=== PATIENT | female | born 1995 | race Caucasian/White ===

== ENCOUNTER 2019-07-05 03:25 | Emergency (ER) | payer OTHER, SELFPAY ==
[2019-07-05 03:35] VITALS: BP 172/114; PULSE 95; RESP 16; TEMP 36.5; O2SAT 99; BMI 46.8
--- NOTE | 2019-07-05 03:54 | CTR_ITS ---
PROCEDURE INFORMATION: Exam: CT Angiography Chest With Contrast Exam date and time: 07/05/2019 4:37 AM Age: 24 years old Clinical indication: Abdominal pain; Localized; Left upper quadrant (luq); Left-sided chest pain; Additional info: Pleuritic chest pain TECHNIQUE: Imaging protocol: Computed tomographic angiography of the chest with intravenous contrast. 3D rendering: MIP and/or 3D reconstructed images were created by the technologist. Radiation optimization: All CT scans at this facility use at least one of these dose optimization techniques: automated exposure control; mA and/or kV adjustment per patient size (includes targeted exams where dose is matched to clinical indication); or iterative reconstruction. Contrast material: OMNI 350; Contrast volume: 95 ml; Contrast route: IV; COMPARISON: CR XR chest 1V portable [id number] 07/05/2019 4:12 AM RADIATION DOSE METRICS: Total DLP: 1864.81 mGy-cm FINDINGS: Pulmonary arteries: Density in the main pulmonary artery only 125 HU. No suggestion of a large central pulmonary embolus. Aorta: No aortic aneurysm or dissection. Lungs: Minimal dependent atelectasis in both lungs. No consolidation. Pleural space: Unremarkable. No pneumothorax. No pleural effusion. Heart: Unremarkable. No cardiomegaly. No pericardial effusion. Lymph nodes: No enlarged lymph nodes. Bones/joints: Old minimal compression fractures. Degeneration of several discs. Only 11 ribs bilaterally. Soft tissues: No acute finding. IMPRESSION: 1. No suggestion of a large pulmonary embolus. 2. Only 11 ribs bilaterally. Other findings detailed above. PROCEDURE INFORMATION: Exam: CT Abdomen And Pelvis With Contrast Exam date and time: 07/05/2019 4:37 AM Age: 24 years old Clinical indication: Abdominal pain; Localized; Left upper quadrant (luq); Left-sided chest pain; Additional info: Pleuritic chest pain TECHNIQUE: Imaging protocol: Computed tomography of the abdomen and pelvis with intravenous contrast. Radiation optimization: All CT scans at this facility use at least one of these dose optimization techniques: automated exposure control; mA and/or kV adjustment per patient size (includes targeted exams where dose is matched to clinical indication); or iterative reconstruction. Contrast material: OMNI 350; Contrast volume: 95 ml; Contrast route: IV; COMPARISON: CR XR chest 1V portable [id number] 07/05/2019 4:12 AM RADIATION DOSE METRICS: Total DLP: 1864.81 mGy-cm FINDINGS: Liver: Unremarkable. No mass. Gallbladder and bile ducts: No calcified stones. No ductal dilation. Pancreas: Unremarkable. No ductal dilation. Spleen: No splenomegaly. Adrenals: No mass. Kidneys and ureters: Unremarkable. No hydronephrosis. Stomach and bowel: Unremarkable. No obstruction. No apparent mucosal thickening. Appendix: Normal appendix. Intraperitoneal space: No free air. Vasculature: Unremarkable. No abdominal aortic aneurysm. Lymph nodes: No enlarged lymph nodes. Bladder: Unremarkable as visualized. Reproductive: Approximately 18 mm water density mass in the right ovary consistent with a follicular cyst. Bones/joints: Unremarkable. No acute fracture. Soft tissues: Unremarkable. CT/CT angio chest w abd pel w con IMPRESSION: No acute findings. Radiation Dose CTDIVOL = (mGy): DLP = 1864.81~1864.81 (mGy-cm)
--- NOTE | 2019-07-05 03:55 | XR_ITS ---
WS: [id number] CHEST XRAY TECHNIQUE: Portable chest. CLINICAL INFORMATION: Chest pain COMPARISON: None. FINDINGS: Heart: Normal cardiac silhouette. Lungs: Lungs are clear. No consolidation or pleural effusion. Bones: Normal visualized bony structures. XR/XR chest 1V portable [id number] IMPRESSION: No acute chest findings
--- NOTE | 2019-07-05 03:57 | ECG_ITS ---
Measurements Intervals [place] Rate: 80 P: 39 AR: 135 QRS: 24 QRSD: 98 T: 25 QT: 366 QTc: 423 SINUS RHYTHM No previous ECG available for comparison Electronically Signed On 07-05-2019 20:49:11 CDT by Oscar Brewer M.D. [email or web address]
[2019-07-05 04:08] VITALS: RESP 20
[2019-07-05] MEDS: morphine 4 mg/mL SDV 1 mL IVP (04:08)
[2019-07-05] MEDS: ondansetron 2 mg/ML SDV 2 mL 4 MG IVP (04:08)
[2019-07-05 04:25] LABS: Basophils % 0.3 %; Eosinophils # 0.1 10^3/uL (0.0-0.8); Eosinophils % 0.9 %; Hematocrit 43.9 % (37.0-47.0); Hemoglobin 14.3 g/dL (11.5-15.3); Lymphocytes # 2.8 10^3/uL (0.8-4.8); Lymphocytes % 30.7 %; Mean Corpuscular HGB Conc 32.6 g/dL (30.0-36.0); Mean Platelet Volume 9.6 fL (7.4-10.4); Monocytes # 0.9 10^3/uL (0.2-0.9); Monocytes % 9.6 %; Neutrophils # 5.4 10^3/uL (1.8-7.7); Neutrophils % 58.1 %; Nucleated Red Blood Cells % 0 %; Platelet Count 348 10^3/cmm (130-400); Red Blood Count 4.93 10^6/uL (4.1-5.3); Red Cell Distribution Width 12.1 % (12.1-15.1); White Blood Count 9.2 10^3/uL (4.0-10.0)
[2019-07-05 04:30] LABS: HCG, Serum Qual Negative (Negative)
[2019-07-05] MEDS: iohexol 350 mg/mL 100 mL Btl IV (04:38)
[2019-07-05 04:39] LABS: Alanine Aminotransferase 23 U/L (0-33); Albumin Level 4.3 g/dL (3.5-5.2); Alkaline Phosphatase 44 IU/L (35-105); Anion Gap 16.2 (5-19); Aspartate Amino Transferase 21 U/L (0-32); Blood Urea Nitrogen 13 mg/dL (6-20); Calcium 10.3 mg/dL (8.5-10.5); Carbon Dioxide 25 mmol/L (22-29); Chloride 103 mmol/L (98-107); Globulin 3.4 g/dL (1.3-4.6); Glomerular Filtration Rate 149.1 mL/min (90-130); Glucose 136 mg/dL (65-115); Lipase 20 U/L (13-60); Osmolality Calculated 288 mOsm/kg (285-295); Potassium 4.2 mmol/L (3.5-5.1); Sodium 140 mmol/L (136-145); Total Bilirubin 0.2 mg/dL (0.15-1.2); Total Protein 7.7 g/dL (6.6-8.7)
[2019-07-05 04:41] LABS: Troponin(5th) Baseline 6 ng/mL (0-10)
[2019-07-05 04:47] LABS: D Dimer 0.44 ug/mIFEU (0-0.59)
--- NOTE | 2019-07-05 05:14 | ED_ITS ---
Documented by User: Claritza Anderson 07/05/19 06:14 HPI - Abdominal Pain General: Chief Complaint: Abdominal Pain Stated Complaint: L SIDE PAIN SHARP Time Seen by Provider: 07/05/19 03:38 History of Present Illness: HPI narrative: Leann is a nice 24-year-old female who comes in complaining of left lower chest and left upper quadrant pain. She states her symptoms began yesterday and are intermittent but have become worse. She denies injury to the area, cough, fever, urinary symptoms only the intermittent chest pain. She states that it started off intermittent but now states is been constant for 3 days never relenting. She is unaware of anything that makes her symptoms better or worse. Associated Symptoms: Denies chills, coffee ground emesis, constipation, GI cramping, diarrhea, dysuria, fever(s), heartburn, hematochezia, hematuria, hematemesis, melena, nausea, syncope and vomiting Review of Systems Const: Denies: fever(s), chills, body aches, fatigue, malaise, night sweats or diaphoresis Eyes: Denies: change in vision, blurry vision or blind spots ENMT: Denies: throat pain, odynophagia, hoarseness, ear or mastoid pain, ear discharge, change in hearing or nasal discharge Card: Reports: chest pain; Denies: palpitations, irregular heart rhythm, lightheadedness, syncope, pre- syncope, dyspnea on exertion or orthopnea Resp: Denies: dyspnea, productive cough, non-productive cough, wheezing, hemoptysis or chest congestion GI: Reports: abdominal pain; Denies: nausea, vomiting, hematemesis, coffee ground emesis, heartburn, diar stefanie, constipation, GI cramping, hematochezia or melena : Denies: flank pain, dysuria, urinary frequency, urinary urgency, oliguria, urinary incontinence or hematuria Musc: Denies: neck pain, back pain, extremity pain, extremity swelling, joint pain, joint swelling, joint redness, joint warmth or joint stiffness Skin/Breast: Denies: rash, pruritus, erythema, skin tenderness or jaundice Neuro: Denies: headache(s), numbness in extremities, weakness in extremities, sensory changes, lack of coordination, difficulty walking, dizziness, vertigo, confusion or Slurred speech present Endo: Denies: polyuria, polydipsia, tired all the time, cold intolerance, excessive sweating, flushing, hot flashes or heat intolerance Robel/Lymph: Denies: easy bruising, easy bleeding, petechiae, purpura or enlarged lymph nodes All/Imm: Denies: urticaria, throat swelling, tongue swelling, facial swelling or acute wheezing PFSH ED PFSH: Surgical History History of dental surgery History of tympanostomy tube placement S/P tonsillectomy Family History (Updated 07/05/19 @ 14:[address]) Other Dementia Diabetes Heart disease Hypertension Social History (Updated 07/05/19 @ 14:42 by JESSICA Wellington) Smoking and tobacco status: never smoked Second hand smoke exposure: No Smoking risk assessment/counseling performed?: No Alcohol intake: never Desire information about alcohol rehabilitation?: No Counseling given: No Desire information about substance/drug rehabilitation?: No Counseling given: No Adopted: No Caregiver/support person: No Lives independently: Yes Household members: spouse Housing: House Marital status: Number of children: 0 Highest education level completed: High School Graduate service: No Current occupational status: employed 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[employer] History of 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 travel: No Current gender identity: Female Physical Exam Const: COMMON NORMALS: no acute distress, patient oriented x3, no limitations, healthy appearing and well nourished EXAM LIMITATIONS: no altered mental status GENERAL APPEARANCE: cooperative, well kempt and well developed HENMT: COMMON NORMALS: normocephalic, atraumatic, hearing grossly normal bilaterally, external ears normal, EAC's normal, Normal external nose present and moist oral mucous membranes HEAD & SCALP: normal to inspection, normocephalic and atraumatic FACE & SINUS: normal facial exam and face symmetric NOSE: Normal external nose present and Normal nares present EXTERNAL EAR: Yes external ears normal EXTERNAL AUDITORY CANAL: EAC's normal MOUTH: Normal oral and palatal mucosa present, lip normal and tongue normal Eye: COMMON NORMALS: Equal, round and reactive pupils present, EOMs intact bilaterally, conjunctivae normal and no scleral icterus GENERAL EYE: appearance normal, both eyes and all related structures ALIGNMENT: Yes alignment normal PERIORBITAL: periorbital findings normal EYELID: eyelids normal CONJUNCTIVA: Yes conjunctivae normal SCLERA: sclerae normal PUPIL: Yes Equal, round and reactive pupils present Neck/C-Spine: COMMON NORMALS: full ROM, no lymphadenopathy, supple, no meningeal signs and no JVD GENERAL: Yes normal visual inspection and Yes trachea midline CERVICAL SPINE: Yes cervical ROM normal Chest: COMMONS NORMALS: normal inspection of the chest CHEST: Yes tenderness rib (Left anterior lower) Resp: COMMON NORMALS: normal respiratory effort, No retractions, No use of accessory muscles and clear to auscultation bilaterally EFFORT & INSPECTION: Yes able to speak in complete sentences AUSCULTATION: clear to auscultation bilaterally, no crackles, no rales, no rhonchi and no wheezes Cardio: COMMON NORMALS: no JVD, regular rate, regular rhythm, S1 normal heart sound present, S2 normal heart sound present, No gallops present (Cardio), No clicks present (Cardio), No murmurs present (Cardio) and No rub (Cardio) RATE: regular rate RHYTHM: regular rhythm HEART SOUNDS: S1 normal heart sound present, S2 normal heart sound present, no click, no gallops, no murmurs and no rubs GI: COMMON NORMALS: Soft to palpation, non-tender, No hepatosplenomegaly present and no masses PALPATION: Yes Soft to palpation, Yes Tenderness to palpation present (GI) Details: LUQ, No Guarding due to palpation present (GI), No Rigid due to palpation, Yes No hepatosplenomegaly present, No Hernia present, No Palpable mass present and No Pulsatile mass present : COMMON NORMALS: Yes no CVA tenderness BLADDER/KIDNEY EXAM: Yes no CVA tenderness EXTERNAL FEMALE EXAM: No Hernia present Back/Pelvis: COMMON NORMALS: no CVA tenderness, thoracic and lumbar spine normal to inspection, no thoracic nor lumbar tenderness and thoraco-lumbar ROM normal Extremity: COMMON NORMALS: normal to inspection, full ROM, capillary refill normal, no joint enlargement, no clubbing, cyanosis or edema and no calf tenderness Neuro: COMMON NORMALS: patient oriented x3, CN's II-XII intact bilaterally, moves all extremities, no focal motor deficits and no sensory deficits noted MENINGEAL SIGNS: Yes no meningeal signs SPEECH: speech normal Psych: COMMON NORMALS: mental status grossly normal, Normal thought process present, cooperative, normal affect, speech normal and activity/motor behavior normal APPEARANCE: Yes well kempt SPEECH: Yes normal speech THOUGHT PROCESS: Normal thought process present Skin: COMMON NORMALS: no rashes or lesions noted, turgor normal, no jaundice, no petechiae and no mottling GENERAL SKIN EXAM: no rashes or lesions noted and turgor normal Course Vital Signs: Vital signs: Vital Signs Temperature 97.7 F 07/05/19 03:35 Pulse Rate 82 07/05/19 06:26 Respiratory Rate 16 07/05/19 06:26 Blood Pressure 130/83 07/05/19 06:26 Pulse Oximetry 98 07/05/19 06:26 MDM - Abdominal Pain MDM Narrative: Medical decision making narrative: Patient has had constant chest pain for the past 3 days. Her EKG and troponin are normal. A second troponin is pending and I expect it to be normal and as long as it is she will be discharged. Patient has reproducible pain and pain with movement. I believe she has a pleurisy or costochondritis. I will place her on pain medication and anti-inflammatories. She agrees to return should her symptoms change or worsen. At this time I see no sign of pericarditis, myocarditis, pneumothorax, pneu monia, pulmonary embolism or other life-threatening cause for her pain. Patient does understand that if it is something more serious her pain what does not get better or gets worse she will need to return to the ER for recheck. Lab Data: Attestation: I reviewed the patient's lab results. Labs: Lab Results 07/05/19 07/05/19 07/05/19 Range/Units 03:50 03:50 03:50 WBC 9.2 (4.0-10.0) 10^3/ uL RBC 4.93 (4.1-5.3) 10^6/u L Hgb 14.3 (11.5-15.3) g/dL Hct 43.9 (37.0-47.0) % MCV 89.0 (81-99) fL MCH 29.0 (28.0-34.0) pg MCHC 32.6 (30.0-36.0) g/dL RDW 12.1 (12.1-15.1) % Plt Count 348 (130-400) 10^3/c mm MPV 9.6 (7.4-10.4) fL Neut % (Auto) 58.1 % Lymph % (Auto) 30.7 % [place] % (Auto) 9.6 % Eos % (Auto) 0.9 % Baso % (Auto) 0.3 % Neut # (Auto) 5.4 (1.8-7.7) 10^3/u L Lymph # (Auto) 2.8 (0.8-4.8) 10^3/u L [place] # (Auto) 0.9 (0.2-0.9) 10^3/u L Eos # (Auto) 0.1 (0.0-0.8) 10^3/u L Baso # (Auto) 0.0 (0.0-0.1) 10^3/u L Nucleated RBC % (a uto) 0 % Nucleated RBCs # 0.0 /100WBC D-Dimer (0-0.59) ug/mIFE U Sodium 140 (136-145) mmol/L Potassium 4.2 (3.5-5.1) mmol/L Chloride 103 (98-107) mmol/L Carbon Dioxide 25 (22-29) mmol/L Anion Gap 16.2 (5-19) BUN 13 (6-20) mg/dL Creatinine 0.5 (0.5-0.9) mg/dL GFR Calculation 149.1 H (90-130) mL/min Glucose 136 H (65-115) mg/dL Calculated Osmolal ity 288 (285-295) mOsm/k g Calcium 10.3 (8.5-10.5) mg/dL Total Bilirubin 0.2 (0.15-1.2) mg/dL AST 21 (0-32) U/L ALT 23 (0-33) U/L Alkaline Phosphata se 44 (35-105) IU/L Troponin T Baselin e (0-10) ng/mL Troponin T 120 Min [place] (0-10) ng/mL Delta Troponin T (0-10) ABS# Total Protein 7.7 (6.6-8.7) g/dL Albumin 4.3 (3.5-5.2) g/dL Globulin 3.4 (1.3-4.6) g/dL Lipase 20 (13-60) U/L HCG, Qual Negative (Negative) Urine Color (Yellow) Urine Appearance (CLEAR) Urine pH (5-7) Ur Specific Gravit y (1.005-1.030) Urine Protein (Negative) Urine Glucose (UA) (Normal) Urine Ketones (Negative) Urine Blood (Negative) Urine Nitrate (Negative) Urine Bilirubin (NEGATIVE) Urine Urobilinogen (Negative) mg/dL Ur Leukocyte Brandy ase (Negative) Urine RBC (0-2) /hpf Urine WBC (0-5) /hpf Ur Squamous Epith Cells (0-5) Urine Bacteria (NONE) 07/05/19 07/05/19 07/05/19 Range/Units 03:50 03:50 05:07 WBC (4.0-10.0) 10^3/ uL RBC (4.1-5.3) 10^6/u L Hgb (11.5-15.3) g/dL Hct (37.0-47.0) % MCV (81-99) fL MCH (28.0-34.0) pg MCHC (30.0-36.0) g/dL RDW (12.1-15.1) % Plt Count (130-400) 10^3/c mm MPV (7.4-10.4) fL Neut % (Auto) % Lymph % (Auto) % [place] % (Auto) % Eos % (Auto) % Baso % (Auto) % Neut # (Auto) (1.8-7.7) 10^3/u L Lymph # (Auto) (0.8-4.8) 10^3/u L [place] # (Auto) (0.2-0.9) 10^3/u L Eos # (Auto) (0.0-0.8) 10^3/u L Baso # (Auto) (0.0-0.1) 10^3/u L Nucleated RBC % (a uto) % Nucleated RBCs # /100WBC D-Dimer 0.44 (0-0.59) ug/mIFE U Sodium (136-145) mmol/L Potassium (3.5-5.1) mmol/L Chloride (98-107) mmol/L Carbon Dioxide (22-29) mmol/L Anion Gap (5-19) BUN (6-20) mg/dL Creatinine (0.5-0.9) mg/dL GFR Calculation (90-130) mL/min Glucose (65-115) mg/dL Calculated Osmolal ity (285-295) mOsm/k g Calcium (8.5-10.5) mg/dL Total Bilirubin (0.15-1.2) mg/dL AST (0-32) U/L ALT (0-33) U/L Alkaline Phosphata se (35-105) IU/L Troponin T Baselin e 6 (0-10) ng/mL Troponin T 120 Min [place] (0-10) ng/mL Delta Troponin T (0-10) ABS# Total Protein (6.6-8.7) g/dL Albumin (3.5-5.2) g/dL Globulin (1.3-4.6) g/dL Lipase (13-60) U/L HCG, Qual (Negative) Urine Color Yellow (Yellow) Urine Appearance Clear (CLEAR) Urine pH 7 (5-7) Ur Specific Gravit y 1.005 (1.005-1.030) Urine Protein Neg (Negative) Urine Glucose (UA) Norm (Normal) Urine Ketones Negative (Negative) Urine Blood Neg (Negative) Urine Nitrate Negative (Negative) Urine Bilirubin Neg (NEGATIVE) Urine Urobilinogen Norm (Negative) mg/dL Ur Leukocyte Brandy ase Negative (Negative) Urine RBC None (0-2) /hpf Urine WBC None (0-5) /hpf Ur Squamous Epith Cells 0-4 H (0-5) Urine Bacteria Trace (NONE) 07/05/19 Range/Units 05:30 WBC (4.0-10.0) 10^3/ uL RBC (4.1-5.3) 10^6/u L Hgb (11.5-15.3) g/dL Hct (37.0-47.0) % MCV (81-99) fL MCH (28.0-34.0) pg MCHC (30.0-36.0) g/dL RDW (12.1-15.1) % Plt Count (130-400) 10^3/c mm MPV (7.4-10.4) fL Neut % (Auto) % Lymph % (Auto) % [place] % (Auto) % Eos % (Auto) % Baso % (Auto) % Neut # (Auto) (1.8-7.7) 10^3/u L Lymph # (Auto) (0.8-4.8) 10^3/u L [place] # (Auto) (0.2-0.9) 10^3/u L Eos # (Auto) (0.0-0.8) 10^3/u L Baso # (Auto) (0.0-0.1) 10^3/u L Nucleated RBC % (a uto) % Nucleated RBCs # /100WBC D-Dimer (0-0.59) ug/mIFE U Sodium (136-145) mmol/L Potassium (3.5-5.1) mmol/L Chloride (98-107) mmol/L Carbon Dioxide (22-29) mmol/L Anion Gap (5-19) BUN (6-20) mg/dL Creatinine (0.5-0.9) mg/dL GFR Calculation (90-130) mL/min Glucose (65-115) mg/dL Calculated Osmolal ity (285-295) mOsm/k g Calcium (8.5-10.5) mg/dL Total Bilirubin (0.15-1.2) mg/dL AST (0-32) U/L ALT (0-33) U/L Alkaline Phosphata se (35-105) IU/L Troponin T Baselin e (0-10) ng/mL Troponin T 120 Min [place] 6.00 (0-10) ng/mL Delta Troponin T 0 (0-10) ABS# Total Protein (6.6-8.7) g/dL Albumin (3.5-5.2) g/dL Globulin (1.3-4.6) g/dL Lipase (13-60) U/L HCG, Qual (Negative) Urine Color (Yellow) Urine Appearance (CLEAR) Urine pH (5-7) Ur Specific Gravit y (1.005-1.030) Urine Protein (Negative) Urine Glucose (UA) (Normal) Urine Ketones (Negative) Urine Blood (Negative) Urine Nitrate (Negative) Urine Bilirubin (NEGATIVE) Urine Urobilinogen (Negative) mg/dL Ur Leukocyte Brandy ase (Negative) Urine RBC (0-2) /hpf Urine WBC (0-5) /hpf Ur Squamous Epith Cells (0-5) Urine Bacteria (NONE) Imaging Data ^: CXR: My impression: No acute cardiopulmonary findings CT Chest/Abdomen/Pelvis: Radiologist's impression: [address] [place] [address] CT Scan Report Signed Patient: Leann Mckeon Unit #: [id number] : 1995 Acct#:[id number] Age/Sex: 24 / F ADM Date: 07/05/19 Loc: ER Room/Bed: Attending Dr: Ordering Provider/Ordering MD: Claritza Anderson DO Date of Service: 07/05/19 Procedure(s): CT angio chest w abd pel w con Accession Number(s): [id number] Report Number: [id number] PROCEDURE INFORMATION: Exam: CT Angiography Chest With Contrast Exam date and time: 07/05/2019 4:37 AM Age: 24 years old Clinical indication: Abdominal pain; Localized; Left upper quadrant (luq); Left-sided chest pain; Additional info: Pleuritic chest pain TECHNIQUE: Imaging protocol: Computed tomographic angiography of the chest with intravenous contrast. 3D rendering: MIP and/or 3D reconstructed images were created by the technologist. Radiation optimization: All CT scans at this facility use at least one of these dose optimization techniques: automated exposure control; mA and/or kV adjustment per patient size (includes targeted exams where dose is matched to clinical indication); or iterative reconstruction. Contrast material: OMNI 350; Contrast volume: 95 ml; Contrast route: IV; COMPARISON: CR XR chest 1V portable [id number] 07/05/2019 4:12 AM RADIATION DOSE METRICS: Total DLP: 1864.81 mGy-cm FINDINGS: Pulmonary arteries: Density in the main pulmonary artery only 125 HU. No suggestion of a large central pulmonary embolus. Aorta: No aortic aneurysm or dissection. Lungs: Minimal dependent atelectasis in both lungs. No consolidation. Pleural space: Unremarkable. No pneumothorax. No pleural effusion. Heart: Unremarkable. No cardiomegaly. No pericardial effusion. Lymph nodes: No enlarged lymph nodes. Bones/joints: Old minimal compression fractures. Degeneration of several discs. Only 11 ribs bilaterally. Soft tissues: No acute finding. IMPRESSION: 1. No suggestion of a large pulmonary embolus. 2. Only 11 ribs bilaterally. Other findings detailed above. PROCEDURE INFORMATION: Exam: CT Abdomen And Pelvis With Contrast Exam date and time: 07/05/2019 4:37 AM Age: 24 years old Clinical indication: Abdominal pain; Localized; Left upper quadrant (luq); Left-sided chest pain; Additional info: Pleuritic chest pain TECHNIQUE: Imaging protocol: Computed tomography of the abdomen and pelvis with intravenous contrast. Radiation optimization: All CT scans at this facility use at least one of these dose optimization techniques: automated exposure control; mA and/or kV adjustment per patient size (includes targeted exams where dose is matched to clinical indication); or iterative reconstruction. Contrast material: OMNI 350; Contrast volume: 95 ml; Contrast route: IV; COMPARISON: CR XR chest 1V portable [id number] 07/05/2019 4:12 AM RADIATION DOSE METRICS: Total DLP: 1864.81 mGy-cm FINDINGS: Liver: Unremarkable. No mass. Gallbladder and bile ducts: No calcified stones. No ductal dilation. Pancreas: Unremarkable. No ductal dilation. Spleen: No splenomegaly. Adrenals: No mass. Kidneys and ureters: Unremarkable. No hydronephrosis. Stomach and bowel: Unremarkable. No obstruction. No apparent mucosal thickening. Appendix: Normal appendix. Intraperitoneal space: No free air. Vasculature: Unremarkable. No abdominal aortic aneurysm. Lymph nodes: No enlarged lymph nodes. Bladder: Unremarkable as visualized. Reproductive: Approximately 18 mm water density mass in the right ovary consistent with a follicular cyst. Bones/joints: Unremarkable. No acute fracture. Soft tissues: Unremarkable. CT/CT angio chest w abd pel w con IMPRESSION: No acute findings. Radiation Dose CTDIVOL = (mGy): DLP = 1864.81 1864.81 (mGy-cm) Dictated By: Lynn Clinton MD Signed By: Lynn Clinton MD Signed Date/Time: 07/05/19601 DD/ 0 EKG Data ^: EKG 1: Attestation: I personally reviewed and interpreted this EKG as follows: EKG interpretation date: 07/05/19 EKG interpretation time: 04:10 Interpretation: Normal sinus rhythm at 80 beats a minute, no acute ST-T wave changes. EKG 2: Attestation: I personally reviewed and interpreted this EKG as follows: EKG interpretation date: 07/05/19 EKG interpretation time: 05:51 Interpretation: Normal sinus rhythm at 86 beats a minute, short IA interval, right axis deviation, nonspecific ST and T waves. Suspect lead misplacement Discharge Plan Discharge Patient Disposition: Home, Self-Care Clinical Impression: Acute costochondritis, Pleurisy Condition: Stable Prescriptions: New ibuprofen 800 mg tablet 800 mg PO TID PRN (Reason: pain) Qty: 30 RF: 0 Graham 5-325 mg tablet 1 tab PO Q6H PRN (Reason: pain) 5 Days Qty: 10 RF: 0 No Action zonisamide 50 mg capsule 50 mg PO Q12H Qty: 60 RF: 0 duloxetine [Cymbalta] 30 mg capsule,delayed release(DR/EC) 30 mg PO BID Qty: 60 RF: 0 Discharge Orders: Discharge Order (Routine); Ordered 07/05/19 Ordered By: Claritza Anderson Referrals: Trent Mao, [facility] [Primary Care Provider] - 1-3 days Discharge Diet: Advance as tolerated Discharge Activity: Increase activity as tolerated Patient Instructions: Pleurisy (ED), Costochondritis (ED) Activity Restrictions/Additional Instructions: Please return to the ER immediately for any of the signs or symptoms listed on your discharge instruction sheets, worsening/changing of your symptoms, you are not getting better as quickly as expected, or for ANY other cause or concerns. Stand Alone Forms: Work/School Release Discharge Date/Time: 07/05/19 06:32 Coding Level of Care Code ED General Internist And Physician Leader for Chg Fwd Exam Comprehensive Documented by User: Farhad Hernandez DO 07/06/19 15:09 HPI - Abdominal Pain General: Chief Complaint: Abdominal Pain Stated Complaint: L SIDE PAIN SHARP Time Seen by Provider: 07/05/19 03:38 PFSH ED PFSH: Surgical History History of dental surgery History of tympanostomy tube placement S/P tonsillectomy Family History (Updated 07/05/19 @ 14:41 by JESSICA Wellington) Other Dementia Diabetes Heart disease Hypertension Social History (Updated 07/05/19 @ 14:42 by JESSICA Wellington) Smoking and tobacco status: never smoked Second hand smoke exposure: No Smoking risk assessment/counseling performed?: No Alcohol intake: never Desire information about alcohol rehabilitation?: No Counseling given: No Desire information about substance/drug rehabilitation?: No Counseling given: No Adopted: No Caregiver/support person: No Lives independently: Yes Household members: spouse Housing: House Marital status: Number of children: 0 Highest education level completed: High School Graduate service: No Current occupational status: employed 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 Zuniga's instructions Lab Data: Labs: Lab Results 07/05/19 07/05/19 07/05/19 Range/Units 03:50 03:50 03:50 WBC 9.2 (4.0-10.0) 10^3/ uL RBC 4.93 (4.1-5.3) 10^6/u L Hgb 14.3 (11.5-15.3) g/dL Hct 43.9 (37.0-47.0) % MCV 89.0 (81-99) fL MCH 29.0 (28.0-34.0) pg MCHC 32.6 (30.0-36.0) g/dL RDW 12.1 (12.1-15.1) % Plt Count 348 (130-400) 10^3/c mm MPV 9.6 (7.4-10.4) fL Neut % (Auto) 58.1 % Lymph % (Auto) 30.7 % [place] % (Auto) 9.6 % Eos % (Auto) 0.9 % Baso % (Auto) 0.3 % Neut # (Auto) 5.4 (1.8-7.7) 10^3/u L Lymph # (Auto) 2.8 (0.8-4.8) 10^3/u L [place] # (Auto) 0.9 (0.2-0.9) 10^3/u L Eos # (Auto) 0.1 (0.0-0.8) 10^3/u L Baso # (Auto) 0.0 (0.0-0.1) 10^3/u L Nucleated RBC % (a uto) 0 % Nucleated RBCs # 0.0 /100WBC D-Dimer (0-0.59) ug/mIFE U Sodium 140 (136-145) mmol/L Potassium 4.2 (3.5-5.1) mmol/L Chloride 103 (98-107) mmol/L Carbon Dioxide 25 (22-29) mmol/L Anion Gap 16.2 (5-19) BUN 13 (6-20) mg/dL Creatinine 0.5 (0.5-0.9) mg/dL GFR Calculation 149.1 H (90-130) mL/min Glucose 136 H (65-115) mg/dL Calculated Osmolal ity 288 (285-295) mOsm/k g Calcium 10.3 (8.5-10.5) mg/dL Total Bilirubin 0.2 (0.15-1.2) mg/dL AST 21 (0-32) U/L ALT 23 (0-33) U/L Alkaline Phosphata se 44 (35-105) IU/L Troponin T Baselin e (0-10) ng/mL Troponin T 120 Min [place] (0-10) ng/mL Delta Troponin T (0-10) ABS# Total Protein 7.7 (6.6-8.7) g/dL Albumin 4.3 (3.5-5.2) g/dL Globulin 3.4 (1.3-4.6) g/dL Lipase 20 (13-60) U/L HCG, Qual Negative (Negative) Urine Color (Yellow) Urine Appearance (CLEAR) Urine pH (5-7) Ur Specific Gravit y (1.005-1.030) Urine Protein (Negative) Urine Glucose (UA) (Normal) Urine Ketones (Negative) Urine Blood (Negative) Urine Nitrate (Negative) Urine Bilirubin (NEGATIVE) Urine Urobilinogen (Negative) mg/dL Ur Leukocyte Brandy ase (Negative) Urine RBC (0-2) /hpf Urine WBC (0-5) /hpf Ur Squamous Epith Cells (0-5) Urine Bacteria (NONE) 07/05/19 07/05/19 07/05/19 Range/Units 03:50 03:50 05:07 WBC (4.0-10.0) 10^3/ uL RBC (4.1-5.3) 10^6/u L Hgb (11.5-15.3) g/dL Hct (37.0-47.0) % MCV (81-99) fL MCH (28.0-34.0) pg MCHC (30.0-36.0) g/dL RDW (12.1-15.1) % Plt Count (130-400) 10^3/c mm MPV (7.4-10.4) fL Neut % (Auto) % Lymph % (Auto) % [place] % (Auto) % Eos % (Auto) % Baso % (Auto) % Neut # (Auto) (1.8-7.7) 10^3/u L Lymph # (Auto) (0.8-4.8) 10^3/u L [place] # (Auto) (0.2-0.9) 10^3/u L Eos # (Auto) (0.0-0.8) 10^3/u L Baso # (Auto) (0.0-0.1) 10^3/u L Nucleated RBC % (a uto) % Nucleated RBCs # /100WBC D-Dimer 0.44 (0-0.59) ug/mIFE U Sodium (136-145) mmol/L Potassium (3.5-5.1) mmol/L Chloride (98-107) mmol/L Carbon Dioxide (22-29) mmol/L Anion Gap (5-19) BUN (6-20) mg/dL Creatinine (0.5-0.9) mg/dL GFR Calculation (90-130) mL/min Glucose (65-115) mg/dL Calculated Osmolal ity (285-295) mOsm/k g Calcium (8.5-10.5) mg/dL Total Bilirubin (0.15-1.2) mg/dL AST (0-32) U/L ALT (0-33) U/L Alkaline Phosphata se (35-105) IU/L Troponin T Baselin e 6 (0-10) ng/mL Troponin T 120 Min [place] (0-10) ng/mL Delta Troponin T (0-10) ABS# Total Protein (6.6-8.7) g/dL Albumin (3.5-5.2) g/dL Globulin (1.3-4.6) g/dL Lipase (13-60) U/L HCG, Qual (Negative) Urine Color Yellow (Yellow) Urine Appearance Clear (CLEAR) Urine pH 7 (5-7) Ur Specific Gravit y 1.005 (1.005-1.030) Urine Protein Neg (Negative) Urine Glucose (UA) Norm (Normal) Urine Ketones Negative (Negative) Urine Blood Neg (Negative) Urine Nitrate Negative (Negative) Urine Bilirubin Neg (NEGATIVE) Urine Urobilinogen Norm (Negative) mg/dL Ur Leukocyte Brandy ase Negative (Negative) Urine RBC None (0-2) /hpf Urine WBC None (0-5) /hpf Ur Squamous Epith Cells 0-4 H (0-5) Urine Bacteria Trace (NONE) 07/05/19 Range/Units 05:30 WBC (4.0-10.0) 10^3/ uL RBC (4.1-5.3) 10^6/u L Hgb (11.5-15.3) g/dL Hct (37.0-47.0) % MCV (81-99) fL MCH (28.0-34.0) pg MCHC (30.0-36.0) g/dL RDW (12.1-15.1) % Plt Count (130-400) 10^3/c mm MPV (7.4-10.4) fL Neut % (Auto) % Lymph % (Auto) % [place] % (Auto) % Eos % (Auto) % Baso % (Auto) % Neut # (Auto) (1.8-7.7) 10^3/u L Lymph # (Auto) (0.8-4.8) 10^3/u L [place] # (Auto) (0.2-0.9) 10^3/u L Eos # (Auto) (0.0-0.8) 10^3/u L Baso # (Auto) (0.0-0.1) 10^3/u L Nucleated RBC % (a uto) % Nucleated RBCs # /100WBC D-Dimer (0-0.59) ug/mIFE U Sodium (136-145) mmol/L Potassium (3.5-5.1) mmol/L Chloride (98-107) mmol/L Carbon Dioxide (22-29) mmol/L Anion Gap (5-19) BUN (6-20) mg/dL Creatinine (0.5-0.9) mg/dL GFR Calculation (90-130) mL/min Glucose (65-115) mg/dL Calculated Osmolal ity (285-295) mOsm/k g Calcium (8.5-10.5) mg/dL Total Bilirubin (0.15-1.2) mg/dL AST (0-32) U/L ALT (0-33) U/L Alkaline Phosphata se (35-105) IU/L Troponin T Baselin e (0-10) ng/mL Troponin T 120 Min [place] 6.00 (0-10) ng/mL Delta Troponin T 0 (0-10) ABS# Total Protein (6.6-8.7) g/dL Albumin (3.5-5.2) g/dL Globulin (1.3-4.6) g/dL Lipase (13-60) U/L HCG, Qual (Negative) Urine Color (Yellow) Urine Appearance (CLEAR) Urine pH (5-7) Ur Specific Gravit y (1.005-1.030) Urine Protein (Negative) Urine Glucose (UA) (Normal) Urine Ketones (Negative) Urine Blood (Negative) Urine Nitrate (Negative) Urine Bilirubin (NEGATIVE) Urine Urobilinogen (Negative) mg/dL Ur Leukocyte Brandy ase (Negative) Urine RBC (0-2) /hpf Urine WBC (0-5) /hpf Ur Squamous Epith Cells (0-5) Urine Bacteria (NONE) Discharge Plan Discharge Patient Disposition: Home, Self-Care Clinical Impression: Acute costochondritis, Pleurisy Condition: Stable Prescriptions: New ibuprofen 800 mg tablet 800 mg PO TID PRN (Reason: pain) Qty: 30 RF: 0 [place] 5-325 mg tablet 1 tab PO Q6H PRN (Reason: pain) 5 Days Qty: 10 RF: 0 No Action zonisamide 50 mg capsule 50 mg PO Q12H Qty: 60 RF: 0 duloxetine [Cymbalta] 30 mg capsule,delayed release(DR/EC) 30 mg PO BID Qty: 60 RF: 0 Discharge Orders: Discharge Order (Routine); Ordered 07/05/19 Ordered By: Claritza Anderson Referrals: Trent Mao, CLOTH DRIER-C [Primary Care Provider] - 1-3 days Discharge Diet: Advance as tolerated Discharge Activity: Increase activity as tolerated Patient Instructions: Pleurisy (ED), Costochondritis (ED) Activity Restrictions/Additional Instructions: Please return to the ER immediately for any of the signs or symptoms listed on your discharge instruction sheets, worsening/changing of your symptoms, you are not getting better as quickly as expected, or for ANY other cause or concerns. Stand Alone Forms: Work/School Release Discharge Date/Time: 07/05/19 06:32 Coding Level of Care Code ED General Internist And Physician Leader for Chg Fwd Exam Comprehensive
[2019-07-05] MEDS: sodium chloride 0.9% 1,000 ML 999 ML IV (05:56)
[2019-07-05] MEDS: ketorolac 30 mg/mL INJ 10 MG IVP (05:57)
[2019-07-05 06:22] LABS: Troponin 5 2HR Delta 0 ABS# (0-10)
[2019-07-05 06:26] VITALS: BP 130/83; PULSE 82; RESP 16; O2SAT 98
[2019-07-05 06:50] LABS: Add Urine Culture? No; Bacteria Urine TRACE; Bilirubin Urine Neg (NEGATIVE); Blood Urine Neg (Negative); Glucose Urine UA Norm (Normal); Ketones Urine Negative (Negative); Leukocyte Esterase Urine Negative (Negative); Nitrate Urine Negative (Negative); Protein Urine Neg (Negative); Specific Gravity, Urine 1.005 (1.005-1.030); Squamous Epithelial Cell Urine 0-4 (0-5); Urine Appearance Clear (CLEAR); Urine Color Yellow (Yellow); Urobilinogen Urine Norm (Negative); pH Urine 7 (5-7)
== END 2019-07-05 06:32 | disposition home or self-care (01) ==
PROVIDERS: Emergency Provider Emergency Medicine; Family Provider Nurse Practitioner; PCP Nurse Practitioner
DX: M94.0 Chondrocostal junction syndrome [Tietze] (principal); R09.1 Pleurisy
CPT/HCPCS: 12345; 71045; 71275; 74177; 80053; 81001; 83690; 84484; 84703; 85025; 85378; 93005; 96361; 96374; 96375; 99283; 99284; J1885; J2270; J2405; J7030; Q9967

== ENCOUNTER 2019-07-18 13:37 | Outpatient (CLI) | payer OTHER, SELFPAY ==
--- NOTE | 2019-07-18 14:01 | MR_ITS ---
WS: [id number] MRI THORACIC SPINE without contrast. HISTORY: M54.14 Radiculopathy, thoracic region. COMPARISON: None available. TECHNIQUE: Multiplanar sequences are performed in sagittal and axial planes. Slight straightening of the normal thoracic kyphosis. Disc spaces and vertebral body heights are norm al. CSF surrounds the thoracic cord. No signal abnormality. Conus tapers normally and ends at the T12 -L1 level. No disc protrusions or stenosis. T1-2: Normal. T2-3: Normal. T3-4: Normal. T4-5: Normal. T5-6: Normal. T6-7: Normal. T7-8: Normal. T8-9: Normal. T9-10: Normal. T10-11: Normal. T11-12: Normal. MR/MR thoracic spin wo con* [id number] IMPRESSION: Normal thoracic spine MRI.
== END 2019-07-18 13:38 | disposition home or self-care (01) ==
PROVIDERS: Family Provider Nurse Practitioner; PCP Nurse Practitioner; Visit Provider Nurse Practitioner
DX: M54.14 Radiculopathy, thoracic region (principal)
CPT/HCPCS: 72146

== ENCOUNTER → 2019-10-10 16:49 | Outpatient (BNVA) | payer OTHER, SELFPAY | PROVIDERS: Family Provider Nurse Practitioner; PCP Nurse Practitioner; Visit Provider Nurse Practitioner | DX: Z12.4 Encounter for screening for malignant neoplasm of cervix (principal) | CPT/HCPCS: 88175 ==

== ENCOUNTER → 2020-02-22 14:03 | Outpatient (BNVA) | payer OTHER, SELFPAY | PROVIDERS: Family Provider Nurse Practitioner; PCP Nurse Practitioner; Visit Provider Nurse Practitioner Family | DX: Z20.828 Contact with and (suspected) exposure to other viral communicable diseases (principal); J06.9 Acute upper respiratory infection, unspecified | CPT/HCPCS: 87635 ==

== ENCOUNTER → 2020-08-05 11:38 | Outpatient (BNVA) | payer OTHER, SELFPAY | PROVIDERS: Family Provider Nurse Practitioner; PCP Nurse Practitioner; Visit Provider Family Medicine Adult Medicine | DX: S93.401A Sprain of unspecified ligament of right ankle, initial encounter (principal); M25.471 Effusion, right ankle; W19.XXXA Unspecified fall, initial encounter | CPT/HCPCS: 73610 ==

== ENCOUNTER → 2020-09-07 13:36 | Outpatient (BNVA) | payer OTHER, SELFPAY | PROVIDERS: Family Provider Nurse Practitioner; PCP Nurse Practitioner; Visit Provider Nurse Practitioner Family | DX: Z20.822 Contact with and (suspected) exposure to COVID-19 (principal); J06.9 Acute upper respiratory infection, unspecified | CPT/HCPCS: 87635 ==

== ENCOUNTER → 2021-01-29 09:03 | Outpatient (BNVA) | payer SELFPAY | PROVIDERS: Family Provider Nurse Practitioner; PCP Nurse Practitioner; Visit Provider Dermatology | DX: Z01.89 Encounter for other specified special examinations (principal) ==

== ENCOUNTER → 2021-04-24 10:29 | Outpatient (BNVA) | payer OTHER, SELFPAY | PROVIDERS: Family Provider Nurse Practitioner; PCP Nurse Practitioner; Visit Provider Nurse Practitioner | DX: E88.81 Metabolic syndrome and other insulin resistance (principal); R10.31 Right lower quadrant pain; Z68.41 Body mass index [BMI] 40.0-44.9, adult | CPT/HCPCS: 81000; 85025 ==

== ENCOUNTER 2021-04-25 09:39 | Outpatient (CLI) | payer OTHER, SELFPAY ==
--- NOTE | 2021-04-25 10:04 | XR_ITS ---
WS: [id number] KUB, AP view, 04/25/2021 Clinical Data: R10.31 - Right lower quadrant pain Comparison: None. Findings: No abnormal intraabdominal masses or calcifications are seen. There is no dilatated small bowel or ev idence of obstruction. There is a calcification overlying the lateral aspect of the right 11th rib does not have the appeara nce of a gallbladder stone. This may be a subcutaneous tissue calcification. XR/XR abdomen 1V* [id number] Impression: Negative KUB.
== END 2021-04-25 09:40 | disposition home or self-care (01) ==
PROVIDERS: PCP Nurse Practitioner; Visit Provider Nurse Practitioner
DX: R10.31 Right lower quadrant pain (principal)
CPT/HCPCS: 74018

== ENCOUNTER 2021-09-06 10:21 | Emergency (ER) | payer OTHER, SELFPAY ==
[2021-09-06 10:33] VITALS: BP 133/93; RESP 16; TEMP 36.4; O2SAT 97; BMI 48.8
[2021-09-06 10:38] VITALS: BP 151/102; PULSE 94; RESP 20; O2SAT 96
--- NOTE | 2021-09-06 10:40 | XR_ITS ---
WS: [id number] XR chest 1V portable [id number] REASON FOR EXAM: dyspnea/cough FINDINGS: The heart and the mediastinum are within normal limits. Calcified granulomatous disease is present both hemithoraces. No lung nodule or lung mass. No acute pulmonary parenchymal or pleural abnormality. The bony thorax is intact without significant abnormality. XR/XR chest 1V portable [id number] IMPRESSION: No acute chest abnormality.
--- NOTE | 2021-09-06 10:40 | ECG_ITS ---
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 Measurements Intervals [place] Rate: 74 P: 159 RI: 128 QRS: 177 QRSD: 86 T: 163 QT: 385 QTc: 428 Interpretive Statements SINUS RHYTHM ARM LEADS REVERSED [INVERTED P AND QRS IN I] Compared to ECG 07/05/2019 04:10:08 No significant changes Electronically Signed On 09-06-2021 20:30:12 CDT by Danial Wagoner M.D. [id number]
[2021-09-06 11:14] LABS: Basophils % 0.3 %; Eosinophils # 0.1 10^3/uL (0.0-0.8); Hemoglobin 16.1 g/dL (11.5-15.3); Nucleated Red Blood Cells % 0 %; Red Cell Distribution Width 12.6 % (12.1-15.1)
[2021-09-06 11:15] LABS: Mean Corpuscular HGB Conc 33.5 g/dL (30.0-36.0); Mean Corpuscular Hemoglobin 29.9 pg (28.0-34.0); Mean Corpuscular Volume 89.1 fl (81-99); Mean Platelet Volume 9.2 fL (7.4-10.4); Neutrophils % 67.5 %; Platelet Count 367 10^3/cmm (130-400); Red Blood Count 5.39 10^6/uL (4.1-5.3); White Blood Count 10.5 10^3/uL (4.0-10.0)
[2021-09-06 11:16] LABS: Lymphocytes # 2.4 10^3/uL (0.8-4.8); Lymphocytes % 23.2 %; Monocytes # 0.8 10^3/uL (0.2-0.9); Monocytes % 7.2 %; Neutrophils # 7.09 10^3/uL (1.8-7.7)
[2021-09-06 11:17] VITALS: BP 145/73; PULSE 75; RESP 20; O2SAT 100
--- NOTE | 2021-09-06 11:25 | PC.PHAR ---
pt states she takes care of her own medications-pt states she hasnt used ozempic 0.25mg q7d in a month states it made her gain weight-pt states she is no longer taking cymbalta 60mg daily pt states not taken in 2 months-notes are made in the pharmacy comments
[2021-09-06 11:27] LABS: Alanine Aminotransferase 34 U/L (0-33); Albumin Level 4.8 g/dL (3.5-5.2); Alkaline Phosphatase 53 IU/L (35-105); Anion Gap 16.3 (5-19); Aspartate Amino Transferase 26 U/L (0-32); Blood Urea Nitrogen 10 mg/dL (6-20); Calcium 9.9 mg/dL (8.5-10.5); Carbon Dioxide 24 mmol/L (22-29); Chloride 101 mmol/L (98-107); Globulin 3.8 g/dL (1.3-4.6); Glucose 91 mg/dL (65-115); Osmolality Calculated 283 mOsm/kg (285-295); Potassium 4.3 mmol/L (3.5-5.1); Sodium 137 mmol/L (136-145); Total Bilirubin 0.4 mg/dL (0.15-1.2); Total Protein 8.6 g/dL (6.6-8.7)
--- NOTE | 2021-09-06 11:36 | W.ED.CHESTPA ---
HPI - Chest Pain General: Chief Complaint: Chest Pain Stated Complaint: chest pain Time Seen by Provider: 09/06/21 10:40 Source: patient Mode of arrival: ambulatory Limitations: no limitations History of Present Illness: 26-year-old female comes in complaining of chest pain is worse when she takes a big deep breaths emanates out of the epigastric area up into the chest. Radiates into the back as well she has had it for the last 2 days worse with movement and inspiration. She states is difficult to take a deep breath because of discomfort she is little bit nauseous and diaphoretic at times with it. She denies use of any illicit drugs she has not had any fever sweats or chills. Nonproductive cough. MD complaint: chest pain Onset (ago): day(s) (2) Timing of current episode: episodic Prior episodes: Yes Pain location: left chest and epigastric Quality: sharp Relieving factors: rest Exacerbating factors: inspiration and supine Associated symptoms: Reports dyspnea and sense of impending doom; Deny abdominal pain, diaphoresis, fever(s), leg edema, nausea, palpitations, syncope or vomiting Treatment prior to arrival: none Review of Systems Const: Denies: fever(s) or diaphoresis ENMT: Denies: throat pain, ear or mastoid pain, nasal discharge or nasal congestion Card: Reports: chest pain; Denies: palpitations, irregular heart rhythm, edema or syncope Resp: Reports: dyspnea; Denies: productive cough or non-productive cough GI: Denies: abdominal pain, nausea or vomiting : Denies: flank pain, difficulty voiding, dysuria, urinary frequency or urinary urgency Skin/Breast: Denies: rash or pruritus [facility] ED PFSH: Medical History BMI 40.0-44.9, adult Metabolic syndrome Oral contraceptive pill surveillance Right ankle sprain Surgical History History of dental surgery History of tympanostomy tube placement S/P tonsillectomy Family History Other Dementia Diabetes Heart disease Hypertension Social History Smoking and tobacco status: never smoked Second hand smoke exposure: No Smoking risk assessment/counseling performed?: No Alcohol intake: never Desire information about alcohol rehabilitation?: No Counseling given: No Desire information about substance/drug rehabilitation?: No Counseling given: No Adopted: No Caregiver/support person: No Lives independently: Yes Household members: spouse Housing: House Marital status: Number of children: 0 Highest education level completed: High School Graduate service: No Current occupational status: employed 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 [email or web address] History of recent travel: No Current gender identity: Female Female Reproductive History: Date of last menstrual period: 12/10/20 Spontaneous abortions: No Physical Exam Const: COMMON NORMALS: no acute distress GENERAL APPEARANCE: cooperative and comfortable ORIENTATION/CONSCIOUSNESS: Yes awake, Yes oriented to person, Yes oriented to place and Yes oriented to time HENMT: COMMON NORMALS: normocephalic, atraumatic and hearing grossly normal bilaterally HEAD & SCALP: normocephalic and atraumatic Neck/C-Spine: COMMON NORMALS: no JVD Resp: COMMON NORMALS: normal respiratory effort, No retractions, No use of accessory muscles and clear to auscultation bilaterally AUSCULTATION: clear to auscultation bilaterally Cardio: COMMON NORMALS: no JVD, regular rate, regular rhythm and No murmurs present (Cardio) RATE: regular rate RHYTHM: regular rhythm GI: COMMON NORMALS: Soft to palpation and No hepatosplenomegaly present AUSCULTATION: Yes normoactive bowel sounds PALPATION: Yes Soft to palpation, No Tenderness to palpation present (GI), No Guarding due to palpation present (GI) and Yes No hepatosplenomegaly present Extremity: COMMON NORMALS: normal to inspection, capillary refill normal, no clubbing, cyanosis or edema, no calf tenderness and no pedal edema Neuro: SENSORIUM/ORIENTATION: Yes oriented to person, Yes oriented to place and Yes oriented to time Skin: COMMON NORMALS: no rashes or lesions noted GENERAL SKIN EXAM: no rashes or lesions noted Course Vital Signs: Vital signs: Vital Signs Temperature 97.5 F L 09/06/21 10:33 Pulse Rate 85 09/06/21 12:00 Respiratory Rate 16 09/06/21 12:00 Blood Pressure 117/74 09/06/21 12:00 Pulse Oximetry 100 09/06/21 12:00 MDM - Chest Pain Medical Decision Making Initial EKG showed inverted T waves electronic read was leads probably reversed a repeat EKG shows normal sinus rhythm there is no acute changes. Troponin is negative. Her symptoms are exacerbated by deep inspiration treat for pleuritic chest pain follow-up with primary care return if is worsening problems. Medical Records I reviewed the patient's medical records. Lab Data I reviewed the patient's lab results. : 09/06/21 10:57 09/06/21 10:57 Radiology Impressions Chest X-Ray 09/06/21 10:40 IMPRESSION: No acute chest abnormality. Laboratory Results WBC 10.5 10^3/uL (4.0-10.0) H 09/06/21 10:57 RBC 5.39 10^6/uL (4.1-5.3) H 09/06/21 10:57 Hgb 16.1 g/dL (11.5-15.3) H 09/06/21 10:57 Hct 48.0 % (37.0-47.0) H 09/06/21 10:57 MCV 89.1 fl (81-99) 09/06/21 10:57 MCH 29.9 pg (28.0-34.0) 09/06/21 10:57 MCHC 33.5 g/dL (30.0-36.0) 09/06/21 10:57 RDW 12.6 % (12.1-15.1) 09/06/21 10:57 Plt Count 367 10^3/cmm (130-400) 09/06/21 10:57 MPV 9.2 fL (7.4-10.4) 09/06/21 10:57 Neut % (Auto) 67.5 % 09/06/21 10:57 Lymph % (Auto) 23.2 % 09/06/21 10:57 [place] % (Auto) 7.2 % 09/06/21 10:57 Eos % (Auto) 1.0 % 09/06/21 10:57 Baso % (Auto) 0.3 % 09/06/21 10:57 Neut # (Auto) 7.09 10^3/uL (1.8-7.7) 09/06/21 10:57 Lymph # (Auto) 2.4 10^3/uL (0.8-4.8) 09/06/21 10:57 [place] # (Auto) 0.8 10^3/uL (0.2-0.9) 09/06/21 10:57 Eos # (Auto) 0.1 10^3/uL (0.0-0.8) 09/06/21 10:57 Baso # (Auto) 0.0 10^3/uL (0.0-0.1) 09/06/21 10:57 Nucleated RBC % (auto) 0 % 09/06/21 10:57 Nucleated RBCs # 0.0 /100WBC 09/06/21 10:57 Sodium 137 mmol/L (136-145) 09/06/21 10:57 Potassium 4.3 mmol/L (3.5-5.1) 09/06/21 10:57 Chloride 101 mmol/L (98-107) 09/06/21 10:57 Carbon Dioxide 24 mmol/L (22-29) 09/06/21 10:57 Anion Gap 16.3 (5-19) 09/06/21 10:57 BUN 10 mg/dL (6-20) 09/06/21 10:57 Creatinine 0.6 mg/dL (0.5-0.9) 09/06/21 10:57 GFR Calculation 119.0 mL/min (90-130) 09/06/21 10:57 Glucose 91 mg/dL (65-115) 09/06/21 10:57 Calculated Osmolality 283 mOsm/kg (285-295) L 09/06/21 10:57 Calcium 9.9 mg/dL (8.5-10.5) 09/06/21 10:57 Total Bilirubin 0.4 mg/dL (0.15-1.2) 09/06/21 10:57 AST 26 U/L (0-32) 09/06/21 10:57 ALT 34 U/L (0-33) H 09/06/21 10:57 Alkaline Phosphatase 53 IU/L (35-105) 09/06/21 10:57 Troponin T Gen 5 ng/L 6 ng/L (0-10) 09/06/21 10:52 Total Protein 8.6 g/dL (6.6-8.7) 09/06/21 10:57 Albumin 4.8 g/dL (3.5-5.2) 09/06/21 10:57 Globulin 3.8 g/dL (1.3-4.6) 09/06/21 10:57 Discharge Plan Discharge Patient Disposition: Home Clinical Impression: Pleuritic chest pain Condition: Stable Prescriptions: New diclofenac sodium 75 mg tablet,delayed release (DR/EC) 75 mg PO Q12H PRN (Reason: pain) Qty: 20 0RF No Action (DME) pen needle, diabetic 33 gauge x 5/32 needle See Rx Instructions .ROUTE .MEDSUPPLY Qty: 100 5RF Rx Instructions: 1 time day spironolactone 50 mg tablet 50 mg PO BID Qty: 180 0RF Zyrtec 10 mg Tablet 10 mg PO BEDTIME 0RF Tylenol Ex Str Rapid Release 500 mg Tablet 500 mg PO BEDTIME PRN (Reason: Sleep) 0RF Benadryl Allergy 25 mg Tablet 25 mg PO BEDTIME 0RF Colace 100 mg Capsule 100 mg PO BEDTIME 0RF Multivitamins 28 mg iron- 800 mcg Tablet 1 tab PO QAM 0RF zonisamide 100 mg capsule 100 mg PO BEDTIME 0RF Discharge Orders: Discharge ED (Routine); Ordered 09/06/21 Ordered By: Farhad Hernandez Referrals: Trent Mao, SECRETARY TO BOARD OF COMMISSIONERSHaroonC [Primary Care Provider] - Discharge Diet: Usual diet Discharge Activity: Increase activity as tolerated Patient Instructions: Pleurisy (ED), Opioid Safety Activity Restrictions/Additional Instructions: You were seen in the emergency room for chest pain. Your cardiac enzymes and EKG are unremarkable for any acute syndrome. Chest x-ray and laboratory tests were normal. Your symptoms were pleuritic and chest pain which is an irritation of the lining of the lung. Use the anti-inflammatory as prescribed diclofenac 1 every 12 hours as needed for discomfort follow-up with your primary care doctor within the week. Coding Level of Care Code ED Commercial Singer for Shanelle Fwd Exam Comprehensive
[2021-09-06 12:00] VITALS: BP 117/74; PULSE 85; RESP 16; O2SAT 100
[2021-09-06] MEDS: ketorolac 30 mg/mL INJ IVP (12:02)
[2021-09-06 12:06] LABS: Troponin T (5th) Once 6 ng/L (0-10)
[2021-09-06 12:48] VITALS: BP 117/74; PULSE 85; RESP 16; O2SAT 100
== END 2021-09-06 12:50 | disposition home or self-care (01) ==
PROVIDERS: Emergency Provider Family Medicine; PCP Nurse Practitioner
DX: R07.81 Pleurodynia (principal)
CPT/HCPCS: 71045; 80053; 84484; 85025; 93005; 96374; 99285; J1885

== ENCOUNTER → 2021-09-16 12:41 | Outpatient (BNVA) | payer OTHER, SELFPAY | PROVIDERS: PCP Nurse Practitioner; Visit Provider Nurse Practitioner | DX: D75.1 Secondary polycythemia (principal); M54.14 Radiculopathy, thoracic region; M54.17 Radiculopathy, lumbosacral region; L68.0 Hirsutism | CPT/HCPCS: 80053; 85025 ==

== ENCOUNTER 2021-10-08 15:00 | Oncology outpatient (recurring) (ONCR) | payer OTHER, SELFPAY ==
[2021-10-08 16:51] LABS: Basophils % 0.2 %; Eosinophils # 0.1 10^3/uL (0.0-0.8); Eosinophils % 1.1 %; Hematocrit 42.9 % (37.0-47.0); Hemoglobin 14.2 g/dL (11.5-15.3); Lymphocytes # 2.6 10^3/uL (0.8-4.8); Lymphocytes % 27.2 %; Mean Corpuscular HGB Conc 33.1 g/dL (30.0-36.0); Mean Corpuscular Volume 90.5 fl (81-99); Mean Platelet Volume 9.4 fL (7.4-10.4); Monocytes # 0.8 10^3/uL (0.2-0.9); Monocytes % 8.6 %; Neutrophils # 6.01 10^3/uL (1.8-7.7); Neutrophils % 62.5 %; Nucleated Red Blood Cells % 0 %; Platelet Count 305 10^3/cmm (130-400); Red Blood Count 4.74 10^6/uL (4.1-5.3); Red Cell Distribution Width 12.3 % (12.1-15.1); White Blood Count 9.6 10^3/uL (4.0-10.0)
[2021-10-08 16:53] LABS: Erythrocyte Sedimentation Rate 5 mm/hr (0-15)
[2021-10-08 17:18] LABS: D Dimer 0.58 ug/mIFEU (0-0.59)
[2021-10-08 17:57] LABS: Alanine Aminotransferase 45 U/L (0-33); Albumin Level 4.3 g/dL (3.5-5.2); Alkaline Phosphatase 53 U/L (35-105); Aspartate Amino Transferase 32 U/L (0-32); Blood Urea Nitrogen 6 mg/dL (6-20); C Reactive Protein 5.5 mg/L (0.0-4.9); Calcium 9.5 mg/dL (8.5-10.5); Carbon Dioxide 25 mmol/L (22-29); Chloride 102 mmol/L (98-107); Globulin 3.6 g/dL (1.3-4.6); Glomerular Filtration Rate 146.9 mL/min (90-130); Glucose 72 mg/dL (65-115); Lipase 20 U/L (13-60); Osmolality Calculated 282 mOsm/kg (285-295); Sodium 138 mmol/L (136-145); Thyroid Stimulating Hormone 2.95 uIU/mL (0.27-4.20); Total Bilirubin 0.4 mg/dL (0.15-1.2); Total Protein 7.9 g/dL (6.6-8.7)
== END 2021-10-16 23:59 | disposition home or self-care (01) ==
PROVIDERS: PCP Nurse Practitioner; Visit Provider Internal Medicine Medical Oncology
DX: D72.829 Elevated white blood cell count, unspecified (principal); Z79.899 Other long term (current) drug therapy
CPT/HCPCS: 80053; 83690; 84443; 85025; 85378; 85651; 86140

== ENCOUNTER → 2021-12-05 10:43 | Outpatient (BNVA) | payer MEDICAID, SELFPAY | PROVIDERS: PCP Nurse Practitioner; Visit Provider Nurse Practitioner Women's Health | DX: Z34.90 Encounter for supervision of normal pregnancy, unspecified, unspecified trimester (principal) | CPT/HCPCS: 81000; 81025; 83036; 84443; 84702; 85025; 86850; 86900; 87491; 87591; 87661 ==

== ENCOUNTER → 2021-12-12 10:27 | Outpatient (BNVA) | payer MEDICAID, SELFPAY | PROVIDERS: PCP Nurse Practitioner; Visit Provider Obstetrics & Gynecology | DX: Z34.90 Encounter for supervision of normal pregnancy, unspecified, unspecified trimester (principal) | CPT/HCPCS: 76817; 84315 ==

== ENCOUNTER → 2021-12-17 09:44 | Outpatient (BNVA) | payer MEDICAID, SELFPAY | PROVIDERS: PCP Nurse Practitioner; Visit Provider Obstetrics & Gynecology | DX: Z34.90 Encounter for supervision of normal pregnancy, unspecified, unspecified trimester (principal); Z3A.00 Weeks of gestation of pregnancy not specified | CPT/HCPCS: 76817; 81000; 82950; 86592; 86762; 87340; 87806 ==

== ENCOUNTER → 2021-12-31 11:27 | Outpatient (BNVA) | payer MEDICAID, SELFPAY | PROVIDERS: PCP Nurse Practitioner; Visit Provider Obstetrics & Gynecology | DX: Z34.91 Encounter for supervision of normal pregnancy, unspecified, first trimester (principal); Z3A.11 11 weeks gestation of pregnancy | CPT/HCPCS: 76801; 80307; 81000; 86803; 87086; 87491; 87591 ==

== ENCOUNTER 2022-01-17 03:34 | Emergency (ER) | payer MEDICAID, SELFPAY ==
[2022-01-17 03:37] VITALS: BP 135/91; PULSE 93; RESP 18; TEMP 36.4; O2SAT 100; BMI 48.0
--- NOTE | 2022-01-17 03:53 | W.ED.GENADLT ---
HPI - General Adult General: Chief complaint: General Medical Stated complaint: 14 weeks back pain Time Seen by Provider: 01/17/22 03:36 Source: patient Mode of arrival: ambulatory Limitations: no limitations History of Present Illness: 26-year-old female who is currently 14 weeks has a history of chronic back pain. She states that she has not been able to take her pain meds over the last 3 months since she is and states that she has had worsening pain. Her pain is a right thoracic region states that sharp in nature much worse with movement or palpation. She denies any radiation of her pain denies any weakness denies any injuries. Associated symptoms: Deny chest pain, dyspnea, headache(s), nausea, rash or vomiting Review of Systems Const: Denies: fever(s), chills, body aches or change in appetite Eyes: Denies: blurry vision or eye discomfort ENMT: Denies: throat pain or dental pain Card: Denies: chest pain Resp: Denies: dyspnea GI: Denies: abdominal pain, nausea, vomiting or diarrhea : Denies: dysuria Musc: Reports: back pain Skin/Breast: Denies: rash Neuro: Denies: headache(s) Psych: Denies: depression [place]/Lymph: Denies: easy bruising All/Imm: Denies: urticaria PFSH ED PFSH: Medical History Allergic rhinitis BMI 40.0-44.9, adult Gastric reflux Metabolic syndrome reports occasional HTN due to stress. Started on spironolactone by PCP since 2019. Neuropathic pain No pertinent past medical history neghx: htn,dm,thyroid,dvt/pe PCP: Aannt Mao Surgical History History of tympanostomy tube placement Hx of wisdom tooth extraction (~2011) S/P tonsillectomy Family History Father Parkinson disease Diabetes Clotting disorder Heart disease Hypertension Mother Diabetes Hypertension Thyroid disease Grandmother Diabetes Paternal Grandfather Stroke Maternal Denies family history of Colon cancer Ovarian cancer Hyperlipidemia Breast cancer Uterine cancer Social History Smoking and tobacco status: never smoked Alcohol intake: never Female Reproductive History: Date of last menstrual period: 10/10/21 Spontaneous abortions: No Physical Exam Const: COMMON NORMALS: no acute distress, patient oriented x3 and healthy appearing HENMT: COMMON NORMALS: normocephalic and atraumatic HEAD & SCALP: normocephalic and atraumatic Eye: COMMON NORMALS: conjunctivae normal CONJUNCTIVA: Yes conjunctivae normal Neck/C-Spine: COMMON NORMALS: full ROM and supple Chest: COMMONS NORMALS: normal inspection of the chest Resp: COMMON NORMALS: normal respiratory effort, No retractions, No use of accessory muscles and clear to auscultation bilaterally AUSCULTATION: clear to auscultation bilaterally Cardio: COMMON NORMALS: regular rate, regular rhythm and No murmurs present (Cardio) RATE: regular rate RHYTHM: regular rhythm GI: COMMON NORMALS: Normal to inspection, nondistended, normoactive bowel sounds present, Soft to palpation, non-tender and no masses PALPATION: Yes Soft to palpation Back/Pelvis: OTHER: point tender over right thoracic spine no midline tenderness Extremity: COMMON NORMALS: normal to inspection and full ROM Neuro: COMMON NORMALS: patient oriented x3, moves all extremities and no focal motor deficits Psych: COMMON NORMALS: mental status grossly normal, Normal thought process present and cooperative THOUGHT PROCESS: Normal thought process present Skin: COMMON NORMALS: no rashes or lesions noted and no wounds GENERAL SKIN EXAM: no rashes or lesions noted Course Vital Signs: Vital signs: Vital Signs Temperature 97.6 F 01/17/22 03:37 Pulse Rate 93 01/17/22 03:37 Respiratory Rate 23 H 01/17/22 04:04 Blood Pressure 135/91 01/17/22 03:37 Pulse Oximetry 98 01/17/22 04:04 Oxygen Delivery Me thod 01/17/22 03:37 MDM - General Adult Medical Decision Making Patient presents with back pain that is chronic in nature she is well-appearing here exam is benign urinalysis is normal she has no complaints she is stable for discharge she is to follow-up with her OB and return if worsening. Lab Data Laboratory Results Urine Color [place] (Yellow) 01/17/22 04:19 Urine Appearance Clear (CLEAR) 01/17/22 04:19 Urine pH 5 (5-7) 01/17/22 04:19 Ur Specific [place] 1.030 (1.005-1.030) 01/17/22 04:19 Urine Protein 1+ (Negative) H 01/17/22 04:19 Urine Glucose (UA) Norm (Normal) 01/17/22 04:19 Urine Ketones 1+ (Negative) H 01/17/22 04:19 Urine Blood Neg (Negative) 01/17/22 04:19 Urine Nitrate Negative (Negative) 01/17/22 04:19 Urine Bilirubin 1+ (Negative) H 01/17/22 04:19 Urine Urobilinogen 4 mg/dL (Negative) H 01/17/22 04:19 Ur Leukocyte Esterase Negative (Negative) 01/17/22 04:19 Urine RBC Rare /hpf (0-2) 01/17/22 04:19 Urine WBC Rare /hpf (0-5) 01/17/22 04:19 Ur Squamous Epith Cells 0-4 /hpf (0-5) H 01/17/22 04:19 Amorphous Sediment 2+ /hpf 01/17/22 04:19 Urine Bacteria Trace /hpf (NONE) 01/17/22 04:19 Hyaline Casts 0-4 /lpf H 01/17/22 04:19 Urine Mucus 1+ /hpf 01/17/22 04:19 Discharge Plan Discharge Patient Disposition: Home Clinical Impression: Back pain Condition: Stable Prescriptions: New cyclobenzaprine 10 mg tablet 10 mg PO BID PRN (Reason: muscle spasm) Qty: 14 0RF No Action famotidine 20 mg tablet 20 mg PO DAILY Zyrtec 10 mg Tablet 10 mg PO BEDTIME Tylenol Ex Str Rapid Release 500 mg Tablet 500 mg PO BEDTIME PRN (Reason: Sleep) Benadryl Allergy 25 mg Tablet 25 mg PO BEDTIME Colace 100 mg Capsule 100 mg PO BEDTIME Multivitamins 28 mg iron- 800 mcg Tablet 1 tab PO QAM Discharge Orders: Discharge ED (Routine); Ordered 01/17/22 Ordered By: Skyler Parry Referrals: Trent Mao, CRUISE COUNSELOR-C [Primary Care Provider] - Discharge Diet: Advance as tolerated Discharge Activity: Resume usual activity Patient Instructions: Back Pain (ED) Coding Level of Care Code ED Plant Maintenance Supervisor for Chg Fwd Exam Comprehensive
[2022-01-17 04:04] VITALS: RESP 23; O2SAT 98
[2022-01-17] MEDS: cyclobenzaprine 10 mg Tablet PO (04:04)
[2022-01-17] MEDS: morphine 4 mg/mL SDV 1 mL IM (04:04)
[2022-01-17 04:37] LABS: Urine Appearance Clear (CLEAR); Urine Color Amber (Yellow)
[2022-01-17 04:38] LABS: Add Urine Microscopic? YES; Bilirubin Urine 1+ (Negative); Blood Urine Neg (Negative); Glucose Urine UA Norm (Normal); Ketones Urine 1+ (Negative); Leukocyte Esterase Urine Negative (Negative); Nitrate Urine Negative (Negative); Protein Urine 1+ (Negative); RBC Urine RARE /hpf (0-2); Urobilinogen Urine 4 mg/dL (Negative); WBC Urine RARE /hpf (0-5); pH Urine 5 (5-7)
[2022-01-17 04:39] LABS: Add Urine Culture? No; Amorphous Sediment Urine 2+ /hpf; Bacteria Urine TRACE /hpf; Hyaline Casts Urine 0-4 /lpf; Mucus Urine 1+ /hpf; Squamous Epithelial Cell Urine 0-4 /hpf (0-5)
[2022-01-17 05:05] VITALS: BP 115/78; PULSE 85; RESP 16; O2SAT 98
== END 2022-01-17 05:00 | disposition home or self-care (01) ==
PROVIDERS: Emergency Provider Emergency Medicine; PCP Nurse Practitioner
DX: O26.892 Other specified pregnancy related conditions, second trimester (principal); M54.6 Pain in thoracic spine; Z3A.14 14 weeks gestation of pregnancy
CPT/HCPCS: 81001; 96372; 99284; J2270

== ENCOUNTER → 2022-01-30 10:50 | Outpatient (BNVA) | payer MEDICAID, SELFPAY | PROVIDERS: PCP Nurse Practitioner; Visit Provider Nurse Practitioner Women's Health | DX: O09.90 Supervision of high risk pregnancy, unspecified, unspecified trimester (principal); O99.210 Obesity complicating pregnancy, unspecified trimester; K21.9 Gastro-esophageal reflux disease without esophagitis; R10.9 Unspecified abdominal pain | CPT/HCPCS: 81000; 82105 ==

== ENCOUNTER → 2022-02-28 09:53 | Outpatient (BNVA) | payer MEDICAID, SELFPAY | PROVIDERS: PCP Nurse Practitioner; Visit Provider Obstetrics & Gynecology | DX: Z34.92 Encounter for supervision of normal pregnancy, unspecified, second trimester (principal); Z3A.20 20 weeks gestation of pregnancy | CPT/HCPCS: 76805 ==

== ENCOUNTER → 2022-03-04 10:11 | Outpatient (BNVA) | payer MEDICAID, SELFPAY | PROVIDERS: PCP Nurse Practitioner; Visit Provider Obstetrics & Gynecology | DX: O09.90 Supervision of high risk pregnancy, unspecified, unspecified trimester (principal) | CPT/HCPCS: 81000 ==

== ENCOUNTER → 2022-03-25 13:17 | Outpatient (BNVA) | payer MEDICAID, SELFPAY | PROVIDERS: PCP Nurse Practitioner; Visit Provider Obstetrics & Gynecology | DX: Z34.92 Encounter for supervision of normal pregnancy, unspecified, second trimester (principal); Z3A.23 23 weeks gestation of pregnancy | CPT/HCPCS: 76816 ==

== ENCOUNTER → 2022-03-28 09:28 | Outpatient (BNVA) | payer MEDICAID, SELFPAY | PROVIDERS: PCP Nurse Practitioner; Visit Provider Nurse Practitioner Women's Health | DX: O09.90 Supervision of high risk pregnancy, unspecified, unspecified trimester (principal); O99.210 Obesity complicating pregnancy, unspecified trimester; Z36.2 Encounter for other antenatal screening follow-up; K21.9 Gastro-esophageal reflux disease without esophagitis; R31.9 Hematuria, unspecified | CPT/HCPCS: 81000; 82950; 87086 ==

== ENCOUNTER 2022-04-10 13:52 | Emergency (ER) | payer OTHER, MEDICAID, SELFPAY ==
[2022-04-10 13:54] VITALS: BP 140/83; PULSE 102; RESP 18; O2SAT 99
--- NOTE | 2022-04-10 14:26 | XR_ITS ---
WS: [id number] Exam: XR knee LT 3V* [id number] Date/Time of Exam: 04/10/2022 2:38 PM Reason For Exam: pain No fracture or dislocation. The joint compartments are preserved. No joint effusion. Normal soft tiss ues. XR/XR knee LT 3V* [id number] IMPRESSION: 1. Normal left knee.
--- NOTE | 2022-04-10 14:26 | XR_ITS ---
WS: [id number] Exam: XR knee RT 3V* [id number] Date/Time of Exam: 04/10/2022 2:38 PM Reason For Exam: pain No fracture or dislocation. The joint compartments are preserved. No joint effusion. Normal soft tiss ue. XR/XR knee RT 3V* [id number] IMPRESSION: 1. Negative right knee.
--- NOTE | 2022-04-10 14:29 | PC.NURSE ---
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 PT STATES SHE FELL ON HER HANDS AND KNEES. PT IS 5MO . PT DENIES LANDING ON ABDOMEN BUT PT STATES SHE HAS SOME LOWER ABDOMINAL PAIN. PT ALSO STATES SHE HAS BILATERAL KNEE PAIN. ABRASIONS PRESENT TO KNEES BILAT. PHYSICIAN ULTRASOUNDED FOR HEART TONES. 145 BPM FHR
[2022-04-10] MEDS: tetanus-dipt-pertussis 0.5 mL SDV IM (14:38)
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
== END 2022-04-10 15:43 | disposition home or self-care (01) ==
PROVIDERS: Emergency Provider Family Medicine; PCP Obstetrics & Gynecology
DX: O9A.212 Injury, poisoning and certain other consequences of external causes complicating pregnancy, second trimester (principal); S80.212A Abrasion, left knee, initial encounter; S80.211A Abrasion, right knee, initial encounter; Z3A.26 26 weeks gestation of pregnancy; W18.39XA Other fall on same level, initial encounter; Y99.0 Civilian activity done for income or pay; Z23 Encounter for immunization
CPT/HCPCS: 73562; 90471; 90715; 99283

== ENCOUNTER 2022-04-11 10:20 | Outpatient (CLI) | payer MEDICAID, SELFPAY ==
[2022-04-11 10:20] VITALS: BMI 48.0
[2022-04-11 10:34] VITALS: RESP 18; TEMP 36.7
--- NOTE | 2022-04-11 10:34 | US_ITS ---
WS: [id number] BIOPHYSICAL PROFILE HISTORY: fall yesterday COMPARISON: 03/25/2022 position: Vertex. Cardiac activity: 144 bpm. Cervix: Not visualized. Bladder is not distended. Placenta: Anterior, no previa or abruption. Placenta grade: 1 Parameters are as follows: Breathin Movement: 2 Tone: 2 Fluid volume: 2 Single vertical pocket of amniotic fluid 5.1 cm. US/US OB BPP wo NST [id number] IMPRESSION: 1. Biophysical profile score: 8/8. 2. Normal single vertical pocket of amniotic fluid.
[2022-04-11 10:47] VITALS: BP 112/66; PULSE 88
[2022-04-11 11:05] VITALS: BP 107/69; PULSE 87
[2022-04-11 11:19] VITALS: BP 109/65; PULSE 83
[2022-04-11 11:34] VITALS: BP 104/70; PULSE 86
[2022-04-11 12:00] VITALS: BP 104/70; PULSE 86
== END 2022-04-11 12:00 | disposition home or self-care (01) ==
LOC: OPOB 10:27 → OBGYN 10:29
PROVIDERS: Absent Provider Obstetrics & Gynecology; PCP Obstetrics & Gynecology; Visit Provider Obstetrics & Gynecology
DX: O26.899 Other specified pregnancy related conditions, unspecified trimester (principal); Z3A.00 Weeks of gestation of pregnancy not specified; Z91.81 History of falling
CPT/HCPCS: 76819; 99211

== ENCOUNTER → 2022-04-25 08:39 | Outpatient (BNVA) | payer MEDICAID, SELFPAY | PROVIDERS: PCP Obstetrics & Gynecology; Visit Provider Obstetrics & Gynecology | DX: O09.90 Supervision of high risk pregnancy, unspecified, unspecified trimester (principal); Z3A.00 Weeks of gestation of pregnancy not specified | CPT/HCPCS: 81000; 85025 ==

== ENCOUNTER → 2022-05-09 11:00 | Outpatient (BNVA) | payer MEDICAID, SELFPAY | PROVIDERS: PCP Obstetrics & Gynecology; Visit Provider Obstetrics & Gynecology | DX: O09.90 Supervision of high risk pregnancy, unspecified, unspecified trimester (principal) | CPT/HCPCS: 81000 ==

== ENCOUNTER → 2022-05-23 11:30 | Outpatient (BNVA) | payer MEDICAID, SELFPAY | PROVIDERS: PCP Obstetrics & Gynecology; Visit Provider Obstetrics & Gynecology | DX: O09.90 Supervision of high risk pregnancy, unspecified, unspecified trimester (principal) | CPT/HCPCS: 81000 ==

== ENCOUNTER → 2022-06-06 08:18 | Outpatient (BNVA) | payer MEDICAID, SELFPAY | PROVIDERS: PCP Obstetrics & Gynecology; Visit Provider Nurse Practitioner Women's Health | DX: O09.90 Supervision of high risk pregnancy, unspecified, unspecified trimester (principal) | CPT/HCPCS: 81000 ==

== ENCOUNTER → 2022-06-20 10:52 | Outpatient (BNVA) | payer OTHER, MEDICAID, SELFPAY | PROVIDERS: PCP Obstetrics & Gynecology; Visit Provider Obstetrics & Gynecology | DX: O09.90 Supervision of high risk pregnancy, unspecified, unspecified trimester (principal) | CPT/HCPCS: 81000; 87081 ==

== ENCOUNTER → 2022-06-27 10:58 | Outpatient (BNVA) | payer OTHER, MEDICAID, SELFPAY | PROVIDERS: PCP Obstetrics & Gynecology; Visit Provider Obstetrics & Gynecology | DX: O09.90 Supervision of high risk pregnancy, unspecified, unspecified trimester (principal); Z3A.37 37 weeks gestation of pregnancy | CPT/HCPCS: 81000 ==

== ENCOUNTER → 2022-07-03 08:22 | Outpatient (BNVA) | payer OTHER, MEDICAID, SELFPAY | PROVIDERS: PCP Obstetrics & Gynecology; Visit Provider Obstetrics & Gynecology | DX: O09.90 Supervision of high risk pregnancy, unspecified, unspecified trimester (principal); Z3A.38 38 weeks gestation of pregnancy | CPT/HCPCS: 81000 ==

== ENCOUNTER 2022-07-11 17:15 | Inpatient (IN) | payer OTHER, MEDICAID, SELFPAY ==
--- NOTE | 2022-06-18 11:54 | ANES.PREANE2 ---
Pre-Anesthetic Assessment Height/Weight: Height 1.52 m Preop Diagnosis: IUP Epidiural Familial anesthetic complications: None Social No alcohol and No tobacco Exam alert, oriented x 3, clear to auscultation bilaterally and regular rate & rhythm Airway Mallampati: Class II Dentition: other (1 missing) Comments: Comments: large neck circumference Metabolic Morbid Obesity Anesthetic Plan ASA status: 2 Anesthesia: Regional (specify below) (epidural) Risk of > 500 ml blood loss (7ml/kg in children): Yes, adequate IV access and fluids planned Medications/Allergies Home Medications Medication Instructions Recorded Confirmed Last Taken Type cetirizine 10 mg tablet (Zyrtec) 10 mg PO BEDTIME 09/06/21 06/06/22 09/05/21 History diphenhydramine HCl 25 mg tablet 25 mg PO BEDTIME 09/06/21 06/06/22 09/05/21 History (Benadryl Allergy) vit no.95-ferrous 1 tab PO QAM 09/06/21 06/06/22 09/06/21 07:00 History fumarate 28 mg-folic acid 800 mcg tablet ( Multivitamins) docusate sodium 100 mg capsule 100 mg PO DAILY 03/04/22 06/06/22 Unknown History (Colace) aspirin 81 mg tablet,delayed 81 mg PO DAILY 05/09/22 06/06/22 Unknown History release (Adult Aspirin Regimen) bacitracin 500 unit/gram topical 1 applic topical Q8H PRN vulvar 06/06/22 06/06/22 Unknown Rx ointment fissure #14.2 grams lidocaine 4 % topical gel 1 applic topical TID PRN pain #10 06/06/22 06/06/22 Unknown Rx grams omeprazole 40 mg capsule,delayed 40 mg PO BID 06/06/22 06/06/22 Unknown History release metronidazole 500 mg tablet 500 mg PO BID #14 tabs 06/10/22 Unknown Rx Allergies Allergy/AdvReac Type Severity Reaction Status Date / Time albuterol Allergy ADR-Agitate Verified 06/06/22 08:16 d [facility] Anesthesia Medical History Allergic rhinitis BMI 40.0-44.9, adult Gastric reflux Metabolic syndrome reports occasional HTN due to stress. Started on spironolactone by PCP since 2019. Neuropathic pain No pertinent past medical history neghx: htn,dm,thyroid,dvt/pe PCP: Anant Mao Surgical History History of cholecystectomy (~01/21/22) History of tympanostomy tube placement Hx of wisdom tooth extraction (~2011) S/P tonsillectomy Family History Father Parkinson disease Diabetes Clotting disorder Heart disease Hypertension Mother Diabetes Hypertension Thyroid disease Grandmother Diabetes Paternal Grandfather Stroke Maternal Denies family history of Colon cancer Ovarian cancer Hyperlipidemia Breast cancer Uterine cancer Social History Do you think of yourself as: Straight/Heterosexual Female Reproductive History Spontaneous abortions: No Data Anesthesia Cardiac Studies: No Data to Display
[2022-07-11] VITALS (14 sets, daily range): BP systolic 106–147; BP diastolic 60–84; PULSE 80–104; RESP 18; BMI 51.1
--- NOTE | 2022-07-11 18:30 | PM.OPHPUD ---
Labor & Delivery H&P Update Date of Procedure: July 12, 2022 Date H&P Performed: 07/10/22 H&P update information: I have reviewed H&P completed within last 30 days, I have examined patient prior to procedure and No changes to prior documentation Admission Diagnosis: Preop diagnosis: IUP
[2022-07-11 18:45] LABS: Basophils % 0.2 %; Eosinophils # 0.1 10^3/uL (0.0-0.8); Eosinophils % 0.4 %; Hematocrit 40.8 % (37.0-47.0); Hemoglobin 13.4 g/dL (11.5-15.3); Lymphocytes # 2.1 10^3/uL (0.8-4.8); Mean Corpuscular HGB Conc 32.8 g/dL (30.0-36.0); Mean Corpuscular Hemoglobin 29.5 pg (28.0-34.0); Mean Corpuscular Volume 89.9 fl (81-99); Mean Platelet Volume 9.9 fL (7.4-10.4); Monocytes # 0.8 10^3/uL (0.2-0.9); Monocytes % 6.6 %; Neutrophils # 9.26 10^3/uL (1.8-7.7); Neutrophils % 74.8 %; Nucleated Red Blood Cells % 0 %; Platelet Count 296 10^3/cmm (130-400); Red Blood Count 4.54 10^6/uL (4.1-5.3); Red Cell Distribution Width 13.2 % (12.1-15.1); White Blood Count 12.4 10^3/uL (4.0-10.0)
[2022-07-11] MEDS: dextrose 5%-lactated ringers 1,000 ML 125 ML IV (18:47)
[2022-07-11] MEDS: ampicillin 2,000 MG in sodium chloride 0.9% (plus) 50 ML 100 MG IV (18:47)
[2022-07-11] MEDS: alum-mag-hydroxide-sime 30 mL UDC PO (22:08)
[2022-07-11] MEDS: ampicillin 1,000 MG in sodium chloride 0.9% (plus) 50 ML 100 MG IV (22:08)
[2022-07-12] VITALS (79 sets, daily range): BP systolic 112–190; BP diastolic 58–101; PULSE 75–121; RESP 16–20; TEMP 35.8–36.9; O2SAT 92–100
[2022-07-12] MEDS: fentaNYL 50 mcg/mL INJ 2mL IVP (02:47)
[2022-07-12] MEDS: ampicillin 1,000 MG in sodium chloride 0.9% (plus) 50 ML 100 MG IV ×2 (02:50→06:16)
[2022-07-12] MEDS: lactated ringers 1,000 ML 999 ML IV ×2 (03:17→05:17)
--- NOTE | 2022-07-12 03:26 | P.ANESUD_ITS ---
Pre-Anesthetic Update Pre-Anesthetic Assessment: Date of Surgery/Procedure: 07/12/22 Preop Nevaeh gnosis: IUP Any changes to Pre-Anesthetic Assessment?: No Labs Last 48hrs: Short CBC 07/11/22 Range/Units 18:18 WBC 12.4 H (4.0-10.0) 10^3/ uL Hgb 13.4 (11.5-15.3) g/dL Hct 40.8 (37.0-47.0) % MCV 89.9 (81-99) fl Plt Count 296 (130-400) 10^3/c mm Neut % (Auto) 74.8 % Neut # (Auto) 9.26 H (1.8-7.7) 10^3/u L Vitals: Pulse Rate 89 07/12/22 01:05 Pulse Rhythm Regular 07/11/22 17:15 Pulse Strength 3+ Normal 07/11/22 17:15 Respiratory Rate 16 07/12/22 02:47 Respiratory Effort Spontaneous, Non- Labored 07/12/22 02:47 Respiratory Depth Normal 07/12/22 02:47 Respiratory Patter n Normal 07/12/22 02:47 Blood Pressure 139/89 07/12/22 01:05 Oxygen Delivery Me thod Room Air 07/11/22 17:15 Exam: Pre-Anes Outpt Exam: alert, oriented x 3, clear to auscultation bilaterally and regular rate & rhythm Cardiac Studies: No Data to Display
--- NOTE | 2022-07-12 04:31 | ANES.PROC ---
Anesthesia Procedures Procedure/Date: 07/12/22 Epidural: Time Out Performed: Yes Consents Signed: Procedure Consent and NPO Consent Consent: requested by attending/covering physician, from patient, risks and benefits reviewed and patient agrees to proceed Lumbar Level: L2-L3 Epidural position: sitting Epidural procedure: sterile prep of area (betadine), 1% lidocaine to numb the area (3 mLs), neg for paresthesia, test dose given, 1.5% xylocaine 1:200k epi (3 mL/2 mL), 0.2% Ropivacaine bolus ml (5 mLs), placed PCEA, no systemic response, sterile dressing applied, L.U.D. no apparent complications and 0.2% Ropiavacaine @ mls/hr (10 mLs/hr) Additional Comments: SERGIO 8cm, catheter threaded to 13cm
[2022-07-12] MEDS: methylergonovine 0.2 mg/mL INJ 1 mL IM (10:31)
--- NOTE | 2022-07-12 10:33 | PM.DELIVERY ---
Delivery Note: Date of delivery: July 12, 2022 Pre-delivery diagnoses: Term . Obesity Post-delivery diagnoses: Same as above Procedure: Spontaneous vaginal delivery Delivering Physician: Mark Aguillon MD Estimated blood loss (mL): 500 Pre-Delivery Course: Ms. Mckeon is a 27 year old established patient with an LMP of 10/10/21 and MARIXA of 07/17/2022 based on LMP and consistent with 9 week sonogram. placing her at 39-1/7 weeks. CC: Admitted for elective induction. HPI: Received appropriate care. Daily vitamins since the start of care. labs have all been normal, including negative for HIV. She was found to positive for Group B Strep from screening at 36 weeks. She has gained approximately 16 lbs throughout the . She denies a history of HTN during . Glucose tolerance screening for gestational diabetes was negative. Delivery: The patient was noted to be complete and pushing, so was placed in the dorsal lithotomy position, prepped and draped in the usual sterile fashion for a vaginal delivery. Pt. Noted to have epidural anesthesia. The patient delivered a viable 39 weeks male weighing 2490 g with scores of 7 and 9 at one and five minutes, respectively. The vertex was delivered spontaneously over intact perineum. The patient was asked to push and the head delivered spontaneously in the SIGIFREDO position, over an intact perineum. A nuchal cord was checked and 1 noted, and relieved around head as necessary. The anterior shoulder delivered easily and the posterior shoulder followed. The remainder of the was easily delivered and the oropharynx and nasopharynx was bulb suctioned. The was noted to have spontaneous cry and spontaneous movement of all four extremities. The cord was clamped x 2 and cut and noted to have 2 arteries and one vein. The infant was passed to the mother's abdomen where nursing personnel were in attendance. The placenta delivered intact spontaneously and the uterus was explored. 20 units of Pitocin was placed in the IV bag to firm the uterus. Examination of the cervix and vaginal vault did not reveal any lacerations. A vaginal pack was then placed. Examination of the perineum showed first-degree laceration did not require repair. The vaginal pack was then removed. The patient tolerated this procedure well, and recovered in L&D with her infant in the LDR room. All sponge and needle counts were correct. History History History 1 Term 0 0 Miscarriages/Ectopic 0 Living Children 0 Coding Level of Care Code Acute Code for Chg Fwd Diagnoses
--- NOTE | 2022-07-12 12:33 | PC.NURSE ---
PATIENT HAS EPIDURAL AND STATES PAIN IS 7 BUT THIS RESEARCH METHODOLOGIST FEELS LIKE SHE IS VERY DRAMATIC AND FEELS LIKE SHE IS MORE COMFORTABLE THAN SHE LETS ON. SHE DOES NOT WANT TO HAVE EPIDURAL REDONE.
[2022-07-12] MEDS: acetaminophen 325 mg Tablet 650 MG PO (12:44)
[2022-07-12] MEDS: lanolin oint 7 gm 1 APPLIC TOPICAL (16:05)
[2022-07-12] MEDS: ibuprofen 800 mg tablet PO ×2 (16:05→20:27)
--- NOTE | 2022-07-12 18:28 | PC.NURSE ---
1814 THIS DIRECTOR OF ACCOUNTS PAYABLE WENT TO TAKE BABY BACK INTO THEM AND BOTH MOM AND DAD WERE SOUND ASLEEP, EVEN KNOCKING ON DOOR DID NO TWAKE THEM. NILE RAMIREZ HAS BEEN WATCHING THIS MOM WHILE I HAVE BEEN IN NURSERY, I WAS TOLD THAT SHE HAD BEEN UP TO BATHROOM BY HERSELF AND AFTERNOON MOTRIN AND BREAST CREAM GIVEN TO HER. WILL KEEP BABY WITH ME UNTIL SHIFT CHANGE SINCE BOTH PARENTS ARE ASLEEP UNLESS THEY WAKE UP. I WILL FOR SURE WAKE THEM UP AND TALK TO THEM ABOUT CIRCCUMCISION PRIOR TO ME LEAVING.
[2022-07-12] MEDS: docusate sodium 100 mg Capsule PO (20:28)
[2022-07-12 22:42] LABS: Hematocrit 27.7 % (37.0-47.0); Mean Corpuscular HGB Conc 32.5 g/dL (30.0-36.0); Mean Corpuscular Hemoglobin 29.6 pg (28.0-34.0); Mean Corpuscular Volume 91.1 fl (81-99); Mean Platelet Volume 9.7 fL (7.4-10.4); Platelet Count 267 10^3/cmm (130-400); Red Blood Count 3.04 10^6/uL (4.1-5.3); Red Cell Distribution Width 13.2 % (12.1-15.1)
[2022-07-13] MEDS: diphenhydrAMINE 25 mg Capsule PO (01:01)
[2022-07-13 04:12] VITALS: BP 117/77; PULSE 90; RESP 16; TEMP 36.6; O2SAT 97
[2022-07-13] MEDS: benzocaine-menthol 78 gm Canister 1 SPRAY TOPICAL (06:17)
[2022-07-13] MEDS: acetaminophen 325 mg Tablet 650 MG PO (06:17)
[2022-07-13 10:00] VITALS: BP 128/79; PULSE 96; RESP 16; TEMP 36.6; O2SAT 97
[2022-07-13] MEDS: prenatal vitamin Capsule 1 CAP PO (10:00)
[2022-07-13] MEDS: docusate sodium 100 mg Capsule PO (10:00)
[2022-07-13] MEDS: ibuprofen 800 mg tablet PO ×2 (10:00→15:17)
--- NOTE | 2022-07-13 12:30 | ANE.PACU2 ---
Inpatient post-anesthesia follow up: Airway intact: Yes Vital signs: Temperature 97.8 F Pulse Rate 96 Respiratory Rate 16 Blood Pressure 128/79 Pulse Oximetry 97 Oxygen Delivery Me thod Room Air Oxygen Flow Rate Fraction of Inspir ed Oxygen Hydration adequate: Yes Nausea and vomiting: No Pain level: 2 Mental status: Baseline
[2022-07-13 15:22] VITALS: BP 118/84; PULSE 96; RESP 16; TEMP 36.8
--- NOTE | 2022-07-13 16:39 | P.DS_ITS ---
Discharge Providers [facility] Date of Admission: 07/11/22 17:15 Date of Discharge: 07/13/22 Attending Provider at Admission: Mark Aguillon MD Attending Provider at Discharge: Mark Aguillon MD Primary [facility] W[employer]ER: Mark Aguillon MD Primary Care Provider: Mark Aguillon MD Reason for Visit Reason for Visit: EDC 07/16/22 Brief History: Ms. Mckeon is a 27 year old established patient with an LMP of 10/10/21 and MARIXA of 07/17/2022 based on LMP and consistent with 9 week sonogram. placing her at 39-1/7 weeks. CC: Admitted for elective induction. HPI: Received appropriate care. Daily vitamins since the start of care. labs have all been normal, including negative for HIV. She was found to positive for Group B Strep from screening at 36 weeks. She has gained approximately 16 lbs throughout the . She denies a history of HTN during . Glucose tolerance screening for gestational diabetes was negative. Hospital Course Hospital Course Ms. Mckeon is a 27 year old established patient with an LMP of 10/10/21 and MARIXA of 07/17/2022 based on LMP and consistent with 9 week sonogram. placing her at 39-0/7 weeks, admitted for elective induction. Upon admission she was 3 cm in dilation with 50% effacement and she was started with oxytocin. She progressed to had a spontaneous vaginal delivery without complications. Overnight observation was uneventful. She is afebrile hemodynamically stable p ostpartum day 1. Tolerating diet well. Ambulating without difficulty. Counseled regarding pelvic rest for 6 weeks (no sex, no tampons, no vaginal douches). Return to the emergency room if any fever, increased bleeding or pain. Information Peripartum Data: Infant Delivery Method: Vaginal Physical Exam Narrative: GA; alert and oriented x 3 HEENT: normal Breasts: engorged Nipples - skin intact Lungs; clear to auscultation Heart: regular rhythm, no murmurs. Abd: Appropriately tender. BS+. Uterine fundus below umbilicus. No Fundal Tenderness. Perineum: normal lochia. Extremities: no edema, no cyanosis, no tenderness. Urinary Catheter Management: [place]: Cath Placed During This Visit: yes, but has since been removed by the nurse Reason for Continuing Indwelling Catheter: Other Urinary Catheter Date of Insertion: 07/12/22 Urinary Catheter Time of Insertion: 05:05 Date Urinary Catheter Removed: 07/12/22 Time Urinary Catheter Discontinued: 10:00 History History History 1 Term 0 0 Miscarriages/Ectopic 0 Living Children 0 Discharge Data Studies Completed and Pending Laboratory Results WBC 16.0 10^3/uL (4.0-10.0) H 07/12/22 22:11 RBC 3.04 10^6/uL (4.1-5.3) L 07/12/22 22:11 Hgb 9.0 g/dL (11.5-15.3) L D 07/12/22 22:11 Hct 27.7 % (37.0-47.0) L D 07/12/22 22:11 MCV 91.1 fl (81-99) 07/12/22 22:11 MCH 29.6 pg (28.0-34.0) 07/12/22 22:11 MCHC 32.5 g/dL (30.0-36.0) 07/12/22 22:11 RDW 13.2 % (12.1-15.1) 07/12/22 22:11 Plt Count 267 10^3/cmm (130-400) 07/12/22 22:11 MPV 9.7 fL (7.4-10.4) 07/12/22 22:11 Neut % (Auto) 74.8 % 07/11/22 18:18 Lymph % (Auto) 17.0 % 07/11/22 18:18 Mathews % (Auto) 6.6 % 07/11/22 18:18 Eos % (Auto) 0.4 % 07/11/22 18:18 Baso % (Auto) 0.2 % 07/11/22 18:18 Neut # (Auto) 9.26 10^3/uL (1.8-7.7) H 07/11/22 18:18 Lymph # (Auto) 2.1 10^3/uL (0.8-4.8) 07/11/22 18:18 Mathews # (Auto) 0.8 10^3/uL (0.2-0.9) 07/11/22 18:18 Eos # (Auto) 0.1 10^3/uL (0.0-0.8) 07/11/22 18:18 Baso # (Auto) 0.0 10^3/uL (0.0-0.1) 07/11/22 18:18 Nucleated RBC % (auto) 0 % 07/11/22 18:18 Nucleated RBCs # 0.0 /100WBC 07/11/22 18:18 Vitals Last Vital Signs Temp 98.2 F 07/13/22 15:22 Pulse 96 07/13/22 15:22 Resp 16 07/13/22 15:22 BP 118/84 07/13/22 15:22 Pulse Ox 97 07/13/22 10:00 O2 Del Method Room Air 07/13/22 10:00 Discharge Plan Discharge Patient Disposition: Home Condition: Stable Prescriptions: New acetaminophen 325 mg capsule 325 mg PO Q4H PRN (Reason: fever or pain) Qty: 60 0RF ferrous sulfate [Iron (ferrous sulfate)] 325 mg (65 mg iron) tablet 325 mg PO BID Qty: 60 1RF ibuprofen 800 mg tablet 800 mg PO TID PRN (Reason: pain) Qty: 60 0RF Continued docusate sodium [Colace] 100 mg capsule 100 mg PO DAILY aspirin [Adult Aspirin Regimen] 81 mg tablet,delayed release (DR/EC) 81 mg PO DAILY omeprazole 40 mg capsule,delayed release(DR/EC) 40 mg PO BID bacitracin 500 unit/gram ointment 1 applic topical Q8H PRN (Reason: vulvar fissure) Qty: 14.2 0RF cetirizine [Zyrtec] 10 mg Tablet 10 mg PO BEDTIME diphenhydramine HCl [Benadryl Allergy] 25 mg Tablet 25 mg PO BEDTIME PNV cmb#95-ferrous fumarate-FA [ Multivitamins] 28 mg iron- 800 mcg Tablet 1 tab PO QAM Discontinued metronidazole 500 mg tablet 500 mg PO BID Qty: 14 0RF Discharge Orders: Discharge Order (Routine); Ordered 07/13/22 Ordered By: Mark Aguillon Discharge Diet: Usual diet Discharge Activity: Limit activity as instructed Patient Instructions: Depression (DC), Bleeding (GEN), Hemorrhage (GEN), OB Discharge Report, OB Food/Drug Interaction Guide, OB Care at Home, OB Home Care, OB Vaginal Deliveries - [facility], Abnormal Bleeding Activity Restrictions/Additional Instructions: 1. Please call [facility] on next working day to make your post- appointment in 6 weeks. 2. Please stay home until you come back to the clinic on first post- hospatilization check up. 3. Please follow instructions on your medications CAREFULLY. 4. If you have abdominal incision, do not cover it unless dressing is necessary because of drainage. OK to shower, but avoid bath. Leave steri-strips until they fall off. If they are still on one week after surgery, you may remove them. 5. If you had vaginal surgery or vaginal repair, Dr. Aguillon may instruct you to take SITZ bath. 6. Yellow, blood tinged odorous vaginal discharge is usually normal after hysterectomy or vaginal surgeries. 7. No SEXUAL INTERCOURSE, tampons, or douches until you are completely released from the post-operative care. 8. Avoid constipation by eating right and maybe using some Metamucil or Milk of Magnesia. 9. All prescription refills are given during the working hours. Please do no wait till it runs out. Call the clinic at [phone] before your medication runs out. The clinic will get in touch with your doctor to prescribe medications if necessary. 10. Please remain within 40 mile radius from our hospital because emergencies do happen now and then during the post-operative period. 11. If you have stairs at home, take one step at a time slowly and minimize the number of trips. It helps to stay in one floor for the next few days. No lifting except what you can lift by one hand until you are released from the post-operative care. 12. Driving is discouraged until you are well healed. It may be 3-4 weeks before you feel strong enough to drive. You should be able to turn and look through the rear window without pain and you should be able to push the brake pedal very hard without pain before you drive. No fast rules, but SAFETY should be your primary concern. DO NOT drive if you are on sedating medications such as narcotics. 13. Call the clinic (during working hours) to make urgent appointment or go to the Emergency room, if any of the following occurs: i. Vaginal bleeding becomes heavy, more than a period. ii. Incision becomes red and sore, or drains pus. iii. Your TEMPERATURE is over 100.4F or you have chill. iv. IV site becomes red and swollen (a little ``knot?? is usually OK) v. Persistent nausea and vomiting vi. Persistent constipation or diarrhea vii. Rash or allergic reaction to medications. Discharge Attestations [facility] [employer] Time Spent in Discharge Care*: greater than 30 min Coding Level of Care Code Acute Code for Chg Fwd Diagnoses
[2022-07-13 21:15] VITALS: BP 118/58; PULSE 99; TEMP 36.7; O2SAT 96
== END 2022-07-13 22:02 | disposition home or self-care (01) | DRG 807 ==
PROVIDERS: Admitting Provider Obstetrics & Gynecology; PCP Obstetrics & Gynecology; Visit Provider Obstetrics & Gynecology
DX: O99.824 Streptococcus B carrier state complicating childbirth (principal); Z37.0 Single live birth; O99.214 Obesity complicating childbirth; O69.2XX0 Labor and delivery complicated by other cord entanglement, with compression, not applicable or unspecified; Z3A.39 39 weeks gestation of pregnancy; Z79.82 Long term (current) use of aspirin
CPT/HCPCS: 36415; 51702; 59025; 59409; 85025; 85027; 96372; 99211; J0290; J2210; J2590; J2795; J3010; J7040; J7120; J7121

== ENCOUNTER → 2023-03-16 16:13 | Outpatient (BNVA) | payer MEDICAID, SELFPAY | PROVIDERS: PCP Obstetrics & Gynecology; Visit Provider Nurse Practitioner | DX: Z12.4 Encounter for screening for malignant neoplasm of cervix (principal) | CPT/HCPCS: 88175 ==

== ENCOUNTER → 2023-12-17 15:59 | Outpatient (BNVA) | payer OTHER, SELFPAY | PROVIDERS: PCP Obstetrics & Gynecology; Visit Provider Nurse Practitioner | DX: E55.9 Vitamin D deficiency, unspecified (principal); M54.14 Radiculopathy, thoracic region; M54.17 Radiculopathy, lumbosacral region | CPT/HCPCS: 80053; 82306; 82607; 83735; 84443; 85025 ==

== ENCOUNTER → 2023-12-18 15:59 | Outpatient (BNVA) | payer OTHER, SELFPAY | PROVIDERS: PCP Obstetrics & Gynecology; Visit Provider Nurse Practitioner | DX: E55.9 Vitamin D deficiency, unspecified (principal); M54.14 Radiculopathy, thoracic region; M54.17 Radiculopathy, lumbosacral region | CPT/HCPCS: 82607 ==